=== PATIENT | male | born 1940 | race Two or more races ===

== ENCOUNTER 2019-09-19 09:13 | Outpatient (CLI) | payer OTHER, SELFPAY ==
[2019-09-19 09:52] LABS: Basophils Percent Auto 0.2 % (0.2-1.2); Eosinophils Absolute Auto 0.1 K/mm3 (0-0.3); Eosinophils Percent Auto 2.5 % (0-4.4); Hematocrit 41.5 % (42.0-52.0); Hemoglobin 13.1 g/dL (14.0-18.0); Immature Granulocyte Absolute 0.01 K/mm3 (0.00-0.031); Immature Granulocyte Percent A 0.2 % (0-0.5); Lymphocytes Absolute Auto 1.25 K/mm3 (0.9-3.2); Lymphocytes Percent Auto 25.9 % (18.3-44.2); Mean Corpuscular HGB Conc 31.6 g/dl (32-36); Mean Corpuscular Hemoglobin 26.9 pg (26-34); Mean Corpuscular Volume 85.2 fl (80-100); Mean Platelet Volume 11.3 fl (7.4-10.4); Monocytes Absolute Auto 0.5 K/mm3 (0.1-0.6); Monocytes Percent Auto 9.5 % (2.6-8.5); Neutrophils Percent Auto 61.7 % (45.5-73.1); Platelet Count Result 133 k/mm3 (150-375); Red Blood Count 4.87 M/mm3 (4.6-6.20); Red Cell Distribution Width 13.3 % (11.5-14.5); White Blood Count 4.8 K/mm3 (4.5-10.0)
[2019-09-19 10:05] LABS: Alanine Aminotransferase 21 U/L (4-50); Albumin Level 4.3 g/dL (3.5-5.1); Alkaline Phosphatase 48 U/L (38-126); Aspartate Amino Transferase 26 U/L (17-59); Bilirubin,Total 0.5 mg/dL (0.2-1.3); Blood Urea Nitrogen 24 mg/dL (9-20); Calcium 9.2 mg/dL (8.4-10.2); Carbon Dioxide 27 mmol/L (22-30); Chloride 106 mmol/L (98-107); Cholesterol 105 mg/dL (0-200); Estimated Glomerular Filt Rate 54; Glucose 149 mg/dL (75-110); HDL Direct 42 mg/dL; Potassium 4.6 mmol/L (3.4-5.0); Sodium 139 mmol/L (137-145); Triglycerides 122 mg/dL (<150)
[2019-09-19 10:07] LABS: Hemoglobin A1C 7.5 % (<5.7)
[2019-09-19 10:16] LABS: LDL Cholesterol Direct 36 mg/dL
[2019-09-19 10:21] LABS: Iron 85 ug/dL (49-181)
[2019-09-19 10:31] LABS: Percent Iron Saturation 23 % (20-50)
[2019-09-19 10:38] LABS: Free T4 Free Thyroxine 0.98 ng/mL (0.78-2.19)
[2019-09-19 10:56] LABS: Vitamin B12 > 1000.0 pg/mL (239-931); Vitamin D 25 Hydroxy 55.6 ng/mL
[2019-09-21 21:55] LABS: Albumin 3.9 g/dL (3.8-4.8); Alpha 1 Globulin 0.2 g/dL (0.2-0.3); Alpha 2 Globulin 0.8 g/dL (0.5-0.9); Beta 1 Globulin 0.4 g/dL (0.4-0.6); Gamma Globulin 0.8 g/dL (0.8-1.7); Protein, Total 6.4 g/dL (6.1-8.1)
[2019-09-22 16:55] LABS: Vitamin B6 23.8 ng/mL (2.1-21.7)
== END 2019-09-19 09:14 | disposition home or self-care (01) ==
PROVIDERS: PCP Psychiatry & Neurology Neurology; Visit Provider Psychiatry & Neurology Neurology
DX: E11.9 Type 2 diabetes mellitus without complications (principal); D64.9 Anemia, unspecified; E78.00 Pure hypercholesterolemia, unspecified; E03.9 Hypothyroidism, unspecified; E53.9 Vitamin B deficiency, unspecified; E55.9 Vitamin D deficiency, unspecified
CPT/HCPCS: 36415; 80053; 80061; 82306; 82607; 83036; 83540; 83550; 84155; 84165; 84207; 84439; 84443; 85025

== ENCOUNTER 2021-08-26 17:03 | Emergency (ER) | payer OTHER, SELFPAY ==
--- NOTE | ~2021-08-26 | CT_ITS ---
EXAMINATION: CT abdomen pelvis wo con DATE: 08/26/2021 19:05 INDICATION: Lower abdominal pain, lower back pain TECHNIQUE: Computed tomography (CT) of the abdomen and pelvis was performed without intravenous contr ast. Automated exposure control and iterative reconstruction technique were employed. The dose-length product was 193.61 mGy-cm. COMPARISON: None FINDINGS: Lower thorax: Severe coronary artery calcifications. Aortic valve calcification. Small hiatal hernia. Liver: Normal. Biliary/Gallbladder: Gallbladder is normal. No bile duct dilation. Spleen: Normal. No hydronephrosis. Pancreas: No mass or duct dilation. Adrenals:No mass. Kidneys: Moderate right and mild left perinephric stranding. Thickening of the lateral conal fascia o n the right. 6.7 and 4.4 cm simple right upper pole renal cysts. 4 mm nonobstructive calculus in the right renal pelvis. GI tract: No small or large bowel dilation. Normal appendix. Mesentery/Peritoneum: No ascites, mass, or free air. Retroperitoneum: No mass. Pelvis: Mild prostatomegaly, otherwise the pelvic organs are within normal limits. Bones/Soft Tissues: Small bilateral inguinal hernias. Small fat-containing umbilical hernia. Additional Findings: None. IMPRESSION: Right renal and collecting system changes that may be secondary to a recently passed right kidney sto ne. Alternatively, consider cystitis and ascending infection in the differential, if clinically consi stent. Reviewed, dictated and finalized at location K. IMPRESSION: Right renal and collecting system changes that may be secondary to a recently p assed right kidney stone. Alternatively, consider cystitis and ascending infect ion in the differential, if clinically consistent.
[2021-08-26 17:29] VITALS: BP 141/61; PULSE 63; RESP 16; TEMP 36.9; O2SAT 98
--- NOTE | 2021-08-26 17:51 | ECG_ITS ---
Measurements Intervals [place] Rate: 60 P: 37 UT: 206 QRS: -28 QRSD: 78 T: 12 QT: 374 QTc: 376 Interpretive Statements SINUS RHYTHM LOW QRS VOLTAGE IN PRECORDIAL LEADS [QRS DEFLECTION < 1.0 mV IN CHEST LEADS] MINIMAL VOLTAGE CRITERIA FOR LVH, CONSIDER NORMAL VARIANT [MEETS CRITERIA IN ONE OF: R(aVL), S(V1), R(V5), R(V5/V6)+S(V1)] POSSIBLE ANTERIOR MYOCARDIAL INFARCTION , PROBABLY OLD [30 ms Q WAVE IN V3/V4, OR R < 0.2 mV IN V4] INFERIOR MYOCARDIAL INFARCTION , PROBABLY OLD [40+ ms Q WAVE AND/OR ST/T ABNORMALITY IN II/aVF] ABNORMAL ECG NO PREVIOUS ECG AVAILABLE FOR COMPARISON Electronically Signed On 08-27-2021 18:01:36 CDT by Wilver Killian M.D.
[2021-08-26 18:14] LABS: Basophils Percent Auto 0.1 % (0.2-1.2); Eosinophils Percent Auto 0.3 % (0-4.4); Hematocrit 41.1 % (42.0-52.0); Hemoglobin 12.9 g/dL (14.0-18.0); Immature Granulocyte Absolute 0.02 K/mm3 (0.00-0.031); Immature Granulocyte Percent A 0.2 % (0-0.5); Immature Platelet Fraction Pct 6.5 % (0.9-11.2); Lymphocytes Percent Auto 12.3 % (18.3-44.2); Mean Corpuscular HGB Conc 31.4 g/dl (32-36); Mean Corpuscular Hemoglobin 27.4 pg (26-34); Mean Corpuscular Volume 87.3 fl (80-100); Mean Platelet Volume 11.4 fl (7.4-10.4); Neutrophils Absolute Auto 7.5 K/mm3 (1.3-6.7); Neutrophils Percent Auto 77.1 % (45.5-73.1); Platelet Count Result 154 k/mm3 (150-375); Red Blood Count 4.71 M/mm3 (4.6-6.20); Red Cell Distribution Width 13.4 % (11.5-14.5); White Blood Count 9.8 K/mm3 (4.5-10.0)
[2021-08-26 18:22] LABS: Alanine Aminotransferase 22 U/L (4-50); Albumin Level 4.5 g/dL (3.5-5.1); Alkaline Phosphatase 58 U/L (38-126); Anion Gap 8 mmol/L (8-16); Aspartate Amino Transferase 28 U/L (17-59); Bilirubin,Total 0.8 mg/dL (0.2-1.3); Blood Urea Nitrogen 35 mg/dL (9-20); Calcium 9.1 mg/dL (8.4-10.2); Carbon Dioxide 24 mmol/L (22-30); Chloride 104 mmol/L (98-107); Creatine Kinase 92 U/L (55-170); Estimated CRCL calculation 25 ml/min; Estimated Glomerular Filt Rate 32; Glucose 267 mg/dL (65-110); Lipase 263 U/L (23-300); Potassium 4.3 mmol/L (3.4-5.0); Sodium 136 mmol/L (137-145)
[2021-08-26] MEDS: ONDANSETRON INJ 4 MG/2 ML VIAL IV PUSH (18:24)
[2021-08-26] MEDS: SODIUM CHLORIDE 0.9% IV 1,000 ML 999 ML IV CONT (18:24)
[2021-08-26] MEDS: HYDROmorphone HCL INJ (*CRX) 1 MG/ML SYR 0.5 MG IV PUSH (18:24)
[2021-08-26 18:25] LABS: INR 1.1; Prothrombin Time 13.4 Seconds (11.1-14.7)
[2021-08-26 18:37] VITALS: BP 142/62; PULSE 64; RESP 13; O2SAT 99
[2021-08-26 18:38] LABS: Mucus Urine Rare /lpf; RBC Urine 0-2 /hpf (0-2); Squamous Epithelial Cell Urine Rare /hpf (Few); WBC Urine 0-3 /hpf
[2021-08-26 18:50] LABS: Appearance Urine Clear (Clear); Color Urine Yellow (Yellow)
[2021-08-26 18:51] LABS: Blood Urine Trace (Negative); Glucose Urine UA 1+ mg/dL (Negative); Ketones Urine Negative (Negative); Protein Urine 1+ mg/dL (Negative); Specific Grav Ur 1.025 (1.001-1.035)
[2021-08-26 18:52] LABS: Bilirubin Urine Negative (Negative); Nitrate Urine Negative (Negative)
[2021-08-26 18:53] LABS: Add Urine Microscopic? YES; Leukocyte Esterase Ur Negative LEU/UL (Negative); Urobilinogen Urine 0.2 mg/dL (<2.0)
--- NOTE | 2021-08-26 20:09 | ED.GENADULT ---
HPI - General Adult General Chief complaint: Abdominal Pain Stated complaint: back and abd pain more on right Time Seen by Provider: 08/26/21 17:39 Related Data Allergies Allergy/AdvReac Type Severity Reaction Status Date / Time Iodinated Contrast Media Allergy Swelling Verified 08/26/21 18:23 Course Vital Signs Vital signs: Vital Signs Temperature 36.9 C 08/26/21 17:29 Pulse Rate 63 08/26/21 17:29 Respiratory Rate 16 08/26/21 17:29 Blood Pressure 141/61 H 08/26/21 17:29 Pulse Oximetry 98 08/26/21 17:29 Temperature 36.9 C 08/26/21 17:29 Pulse Rate 64 08/26/21 18:37 Respiratory Rate 13 08/26/21 18:37 Blood Pressure 142/62 H 08/26/21 18:37 Pulse Oximetry 99 08/26/21 18:37 Medical Decision Making Vital Signs Vital Signs: Vital Signs Temperature 36.9 C 08/26/21 17:29 Pulse Rate 63 08/26/21 17:29 Respiratory Rate 16 08/26/21 17:29 Blood Pressure 141/61 H 08/26/21 17:29 Pulse Oximetry 98 08/26/21 17:29 Temperature 36.9 C 08/26/21 17:29 Pulse Rate 64 08/26/21 18:37 Respiratory Rate 13 08/26/21 18:37 Blood Pressure 142/62 H 08/26/21 18:37 Pulse Oximetry 99 08/26/21 18:37 Lab Data Result diagrams: 08/26/21 18:01 08/26/21 18:01 Labs: Lab Results 08/26/21 08/26/21 08/26/21 Range/Units 18:01 18:01 18:06 WBC 9.8 (4.5-10.0) K/mm3 RBC 4.71 (4.6-6.20) M/mm3 Hgb 12.9 L (14.0-18.0) g/dL Hct 41.1 L (42.0-52.0) % MCV 87.3 (80-100) fl MCH 27.4 (26-34) pg MCHC 31.4 L (32-36) g/dl RDW 13.4 (11.5-14.5) % Plt Count 154 (150-375) k/mm3 MPV 11.4 H (7.4-10.4) fl Immature Gran % (Auto) 0.2 (0-0.5) % Neut % (Auto) 77.1 H (45.5-73.1) % Lymph % (Auto) 12.3 L (18.3-44.2) % Miller % (Auto) 10.0 H (2.6-8.5) % Eos % (Auto) 0.3 (0-4.4) % Baso % (Auto) 0.1 L (0.2-1.2) % Lymph # (Auto) 1.20 (0.9-3.2) K/mm3 Miller # (Auto) 1.0 H (0.1-0.6) K/mm3 Eos # (Auto) 0.0 (0-0.3) K/mm3 Baso # (Auto) 0.0 (0.0-0.1) K/mm3 Abs Immat Gran (auto) 0.02 (0.00-0.031) K/mm3 Absolute Neuts (auto) 7.5 H (1.3-6.7) K/mm3 Absolute Nucleated RBC 0.0 (0.0-0.012) K/mm3 Nucleated RBC % 0.0 (0.0-0.2) % % Immature Plt Fraction 6.5 (0.9-11.2) % PT 13.4 (11.1-14.7) Seconds INR 1.1 APTT 31.0 (22.3-36.8) SECONDS Sodium 136 L (137-145) mmol/L Potassium 4.3 (3.4-5.0) mmol/L Chloride 104 (98-107) mmol/L Carbon Dioxide 24 (22-30) mmol/L Anion Gap 8 (8-16) mmol/L BUN 35 H D (9-20) mg/dL Creatinine 2.00 H (0.7-1.3) mg/dL Estim Creat Clear Calc 25 ml/min Estimated GFR 32 L (59 - ) Glucose 267 H (65-110) mg/dL Calcium 9.1 (8.4-10.2) mg/dL Total Bilirubin 0.8 (0.2-1.3) mg/dL AST 28 (17-59) U/L ALT 22 (4-50) U/L Alkaline Phosphatase 58 (38-126) U/L Total Creatine Kinase 92 (55-170) U/L Total Protein 7.0 (6.3-8.2) g/dL Albumin 4.5 (3.5-5.1) g/dL Lipase 263 (23-300) U/L Urine Color (Yellow) Urine Appearance (Clear) Urine pH (5.0-9.0) Ur Specific Lutz (1.001-1.035) Urine Protein (Negative) mg/dL Urine Glucose (UA) (Negative) mg/dL Urine Ketones (Negative) mg/dL Ur Blood (Man) (Negative) Urine Nitrate (Negative) Urine Bilirubin (Negative) Urine Urobilinogen (<2.0) mg/dL Leukocyte Esterase Rfl (Negative) MACKENZIE/UL Urine RBC (0-2) /hpf Urine WBC /hpf Ur Squamous Epith Cells (Few) /hpf Urine Mucus /lpf 08/26/21 Range/Units 18:10 WBC (4.5-10.0) K/mm3 RBC (4.6-6.20) M/mm3 Hgb (14.0-18.0) g/dL Hct (42.0-52.0) % MCV (80-100) fl MCH (26-34) pg MCHC (32-36) g/dl RDW (11.5-14.5) % Plt Count (150-375) k/mm3 MPV (7.4-10.4) fl Immature Gran % (Auto) (0-0.5) % Neut % (Auto) (45.5-73.1) % Lymph % (Auto) (18.3-44.2) % Miller % (Auto)
[2021-08-26 20:34] VITALS: BP 107/76; PULSE 61; RESP 16; O2SAT 97
== END 2021-08-26 21:05 | disposition home or self-care (01) ==
PROVIDERS: Emergency Provider Emergency Medicine
DX: M54.50 Low back pain, unspecified (principal); E86.0 Dehydration; I25.10 Atherosclerotic heart disease of native coronary artery without angina pectoris; E78.5 Hyperlipidemia, unspecified; E11.9 Type 2 diabetes mellitus without complications; Z79.84 Long term (current) use of oral hypoglycemic drugs; R10.31 Right lower quadrant pain
CPT/HCPCS: 36415; 74176; 80053; 81001; 82550; 83690; 85025; 85055; 85610; 85730; 93005; 96361; 96374; 96375; 99284; J1170; J2405; J7030

== ENCOUNTER 2021-09-02 11:27 | Outpatient (CLI) | payer OTHER, SELFPAY ==
[2021-09-02 12:03] LABS: Estimated Glomerular Filt Rate 53
== END 2021-09-02 11:28 | disposition home or self-care (01) ==
PROVIDERS: Visit Provider Psychiatry & Neurology Neurology
DX: E78.5 Hyperlipidemia, unspecified (principal); E11.9 Type 2 diabetes mellitus without complications
CPT/HCPCS: 36415; 82565

== ENCOUNTER 2022-07-14 12:07 | Outpatient (CLI) | payer MEDICARE, BC, SELFPAY ==
[2022-07-14 13:14] LABS: Anion Gap 4 mmol/L (8-16); Blood Urea Nitrogen 25 mg/dL (9-20); Calcium 9.3 mg/dL (8.4-10.2); Carbon Dioxide 29 mmol/L (22-30); Chloride 104 mmol/L (98-107); Estimated Glomerular Filt Rate 53; Glucose 125 mg/dL (65-110); HDL Direct 48 mg/dL; Potassium 4.6 mmol/L (3.4-5.0); Sodium 137 mmol/L (137-145)
[2022-07-14 13:25] LABS: LDL Cholesterol Direct 33 mg/dL
[2022-07-14 13:44] LABS: Microalbumin Urine Random 83.9 mg/L (0-16.7)
[2022-07-14 15:03] LABS: Creatinine Urine 462.4 mg/dL; MALB Creatinine Ratio 18.1 mg/g (0-30)
== END 2022-07-14 12:08 | disposition home or self-care (01) ==
LOC: ANHWCLAB 12:12
PROVIDERS: Visit Provider Internal Medicine Endocrinology, Diabetes & Metabolism
DX: E11.65 Type 2 diabetes mellitus with hyperglycemia (principal); E78.5 Hyperlipidemia, unspecified
CPT/HCPCS: 36415; 80048; 82043; 82607; 83718; 83721; 84443

== ENCOUNTER 2023-02-12 10:06 | Outpatient (CLI) | payer MEDICARE, SELFPAY ==
[2023-02-12 11:13] LABS: Anion Gap 5 mmol/L (8-16); Blood Urea Nitrogen 34 mg/dL (9-20); Calcium 9.1 mg/dL (8.4-10.2); Carbon Dioxide 29 mmol/L (22-30); Chloride 104 mmol/L (98-107); Cholesterol 111 mg/dL (0-200); Estimated Glomerular Filt Rate 42; Glucose 161 mg/dL (65-110); HDL Direct 41 mg/dL; Potassium 4.8 mmol/L (3.4-5.0); Sodium 138 mmol/L (137-145); Triglycerides 134 mg/dL (<150)
[2023-02-12 11:26] LABS: LDL Cholesterol Direct 44 mg/dL
[2023-02-12 11:53] LABS: Creatinine Urine 203.6 mg/dL
[2023-02-12 11:57] LABS: MALB Creatinine Ratio 45.5 mg/g (0-30); Microalbumin Urine Random 92.6 mg/L (0-16.7)
== END 2023-02-12 10:07 | disposition home or self-care (01) ==
LOC: ANHLAB 10:11
PROVIDERS: Visit Provider Internal Medicine Endocrinology, Diabetes & Metabolism
DX: E11.65 Type 2 diabetes mellitus with hyperglycemia (principal); E78.5 Hyperlipidemia, unspecified
CPT/HCPCS: 36415; 80048; 80061; 82043; 82607; 84443

== ENCOUNTER 2023-06-02 11:08 | Outpatient (CLI) | payer MEDICARE, SELFPAY ==
[2023-06-04 14:29] LABS: Glutamic acid decarboxylase AA <5 IU/mL (<5)
[2023-06-04 21:03] LABS: C-Peptide 2.91 ng/mL (0.80-3.85)
== END 2023-06-02 11:09 | disposition home or self-care (01) ==
LOC: ANHLAB 11:09
PROVIDERS: Visit Provider Internal Medicine
DX: E11.65 Type 2 diabetes mellitus with hyperglycemia (principal)
CPT/HCPCS: 36415; 84681; 86341

== ENCOUNTER 2024-08-25 07:23 | Outpatient (CLI) | payer MEDICARE, SELFPAY ==
--- OUTSIDE RECORDS SUMMARY | 2024-08-24 13:18 | XMS_ITS ---
Author Organization [facility] tae Address [address] [place] [address] Care Team Providers Care Eco Industrial Development Consultant Name Role Phone Chapincito Qureshi Primary Care Provider Chapincito Qureshi MD Unavailable Unavailable Encounters Encounter Location Date Provider Diagnosis [facility] [address] [facility] [address] [place] [address] 07/25/2024 Chapincito Qureshi Plan Of Treatment Next Appt Details Provider Name:Chapincito Qureshi, 10/14/2024 09:15:00 AM, [address] [address], [place], [address], Progress Notes * Huy KHANDOB:1940 ( 83 yo M)Acc No.[id number]:07/25/2024 Patient: Huy DUMONT :1940 A ge:83 Y S ex:Male Address:[address] [place] [address], [address] * true * Date: Generated for Printi ng/Faxing/eTransmitting on: 0 08/24/2024 01:18 PM CDT
--- OUTSIDE RECORDS SUMMARY | 2024-08-24 13:18 | XMS_ITS | CONTINUITY OF CARE DOCUMENT ---
Author Name toño lundberg Address Unknown Organization [facility] Address [address] [place] [address] Phone [phone] Care Team Providers Care Telescope Operator Name Role Phone JOE SERRANO, LULU Unavailable INSURANCE PROVIDERS Payer name Policy type / Coverage type [place] red republican ID [id number] PPO Other [id number]
--- OUTSIDE RECORDS SUMMARY | 2024-08-24 13:18 | XMS_ITS | Patient Health Record ---
Author Organization [facility] tae Address [address] [address] [place] [address] Care Team Providers Care Talent Analyst Name Role Phone Chapincito Qureshi Primary Care Provider Chapincito Qureshi MD Unavailable Unavailable Allergies Allergen (clinical drug ingredient) Drug/Non Drug Allergy documented on EMR Reaction Allergy Type Onset Date Status Iodine Unknown Drug Allergy 03/26/2015 Inacti ve Results Component Value Reference Range Notes CBC w auto diff (Not yet rev iewed by provider) Interpretation: Performing Lab:[facility] , [address] [facility] [facility] [address] Notes/Report: WBC 4.4 3.8-9.9 K/cumm Hgb 13.8 13.0-17.5 g/dL Hct 45.0 38.9-50.3 % Platelet Ct 113 150-400 K/cumm MPV 11.4 9.1-12.3 fL RBC 5.07 4.30-5.80 M/cumm MCV 88.8 81.3-96.4 fL MCH 27.2 27.1-33.3 pg MCHC 30.7 32.3-35.7 g/dL RDW CV 14.3 11.1-14.9 % RDW SD 45.5 35.7-48.1 fL NRBC Abs Auto 0.00 0.00-0.01 K/cumm Comprehensive metabolic pane l (CMP) (Not yet reviewed by provider) Interpretation: Performing Lab:[facility] , [address] [facility]. [place] [address] Notes/Report: Sodium 143 135-145 mmol/L Plasma Potassium 4.9 3.3-4.9 mmol/L Chloride 108 97-110 mmol/L Total CO2 24 22-32 mmol/L Anion Gap 11 2-15 mmol/L BUN 29 6-25 mg/dL Creatinine 1.46 0.80-1.30 mg/dL Glucose 126 70-199 mg/dL Fasting glucose between 100 mg/dl to 125 mg/dl is diagnostic of prediabetes. In a patient with classic symptoms of hyperglycemia or hyperglycemic crisis, a random glucose >/= 200 mg/dl is diagnostic for diabetes. In the absence of unequivocal hyperglycemia, results should be confirmed by repeat testing. The classification and Diagnosis of Diabetes Diabetes Care 202; 46: S19-S40. Current interpretive data was last revised 2022. Interpretive Data Fasting glucose >/= 126 mg/dl is diagnostic for diabetes. Fasting is defined as no caloric intake for at least 8 hours. Total Calcium 9.2 8.5-10.3 mg/dL Total Bilirubin 0.5 0.1-1.2 mg/dL Plasma Total Protein 7.0 6.5-8.5 g/dL Albumin 4.2 3.5-5.0 g/dL Alkaline Phosphatase 48 40-130 Units/L ALT 30 7-55 Units/L AST 28 10-50 Units/L Hemoglobin A1C (Not yet revi ewed by provider) Interpretation: Performing Lab:[facility] , [address] [place] [address]. [facility] [address] Notes/Report: Hemoglobin A1C 6.7 4.0-5.6 % Est Average Glucose 146 The ADA recommends reporting an estimated Average Glucose (eAG) with all Hemoglobin A1c results using the equation derived from a study of 507 normal and diabetic adults. Minority populations were underrepresented and children were not included. (Diabetes Care 31:1003-8028, 2008). The eAG is not equivalent to a fasting glucose. Lipid Panel (Not yet reviewe d by provider) Interpretation: Performing Lab:[facility] , [address] [facility]. [facility] [address] Notes/Report: Cholesterol 121 30-199 mg/dL Interpretive Data Ages < or = 19 years Acceptable: <170 mg/dL Borderline high: 170-199 mg/dL High: >or= 200 mg/dL Ages > or = 20 years Desirable: <200 mg/dL Borderline high: 200-239 mg/dL High: >or= 240 mg/dL Literature References: 1. Expert Panel on Integrated Guidelines for Cardiovascular Health and Risk Reduction in Children and Adolescents. Pediatrics 2011;128:S213 2. NCEP Expert Panel. Circulation 2004;110:227 Current Interpretive Data was last revised on 2018. Triglycerides 89 <=149 mg/dL Interpretive Data Ages < or = 9 years Acceptable: <75 mg/dL Borderline high: 75-99 mg/dL High: >or= 100 mg/dL Ages 10 to 20 years Acceptable: <90 mg/dL Borderline high: 90-129 mg/dL High: >or= 130 mg/dL Ages > or = 20 years Desirable: <150 mg/dL Borderline high: 150-199 mg/dL High: 200-499 mg/dL Very high: >or= 499 mg/dL Literature References: 1. Expert Panel on Integrated Guidelines for Cardiovascular Health and Risk Reduction in Children and Adolescents. Pediatrics 2011;128:S213 2. NCEP Expert Panel. Circulation 2003;110:227 Current Interpretive Data was last revised on 2018. HDL Cholesterol 49 >=40 mg/dL Interpretive Data Ages < or = 19 years Acceptable: >45 mg/dL Borderline low: 40-45 mg/dL Low: <40 mg/dL Ages > or = 20 years Desirable: >or= 60 mg/dL Low: <40 mg/dL Literature References: 1. Expert Panel on Integrated Guidelines for Cardiovascular Health and Risk Reduction in Children and Adolescents. Pediatrics 2010;128:S213 2. NCEP Expert Panel. Circulation 2003;110:227 Current Interpretive Data was last revised on 2018. LDL Cholesterol, calculated 55 <=129 mg/dL Interpretive Data Ages < or = 19 years Acceptable: <110 mg/dL Borderline high: 110-129 mg/dL High: >or= 130 mg/dL Ages > or = 20 years Optimal: <100 mg/dL Near optimal: 100-129 mg/dL Borderline high: 130-159 mg/dL High: >160 mg/dL Calculated using the Cao LDL-C estimating equation. This equation was implemented on 2024. Prior to this date LDL-C was estimated using the Friedewald equation. Literature References: 1. Expert Panel on Integrated Guidelines for Cardiovascular Health and Risk Reduction in Children and Adolescents. Pediatrics 2010;128:S213 2. NCEP Expert Panel. Circulation 2004;110:227 3. Nash M et al. GIOVANNA Cardiol. 2020 September 15;5(5):540-548. doi: [email or web address] Current Interpretive Data was last revised on 2024. Non-HDL Cholesterol 72 Interpretive Data Ages < or = 19 years Acceptable: <120 mg/dL Borderline high: 120-144 mg/dL High: >145 mg/dL Ages > or = 20 years When triglycerides are >200 mg/dL, Non-HDL cholesterol is a secondary target of therapy with treatment goals that are 30 mg/dL greater than the LDL cholesterol target. Literature References: 1. Expert Panel on Integrated Guidelines for Cardiovascular Health and Risk Reduction in Children and Adolescents. Pediatrics 2011;128:S213 2. NCEP Expert Panel. Circulation 2004;110:227 Current Interpretive Data was last revised on 2018. Cholesterol/HDL ratio 2 PSA, Screen (Not yet reviewe d by provider) Interpretation: Performing Lab:[facility] , [facility] [facility]. [place] [address] Notes/Report: PSA-Total 3.69 <=6.20 ng/mL Interpretive Data AGE SEX REFERENCE INTERVAL 0 minutes-150 years Female None 0 minutes-49 years Male None 50-59 years Male 0-3.90 60-69 years Male 0-5.40 70-79 years Male 0-6.20 80-150 years Male 0-6.20 The Ha PSA Total assay procedure was used. Results from different manufacturers or methods may not be comparable. Serial testing should be performed using the same method. Current interpretive data last revised 21. T3 Free (Not yet reviewed by provider) Interpretation: Performing Lab:[facility] , [address] [facility]. [place] [address] Notes/Report: Free T3 2.9 2.0-4.4 pg/mL TSH Reflex FT4 (Not yet revi ewed by provider) Interpretation: Performing Lab:[facility] , [address] [facility] [place] [address] Notes/Report: TSH (Morgan) 1.50 0.30-4.20 mcIUnit/mL UA, reflex Micro to Culture (Not yet reviewed by provider) Interpretation: Performing Lab:[facility] , [address] [place] [address]. [place] [address] Notes/Report: Color, Ur Yellow Yellow Clarity, Ur Clear Clear Spec Grav, Ur 1.027 1.003-1.03 pH, Ur 6.0 Interpretive Data ?Urine pH is affected by diet, medications, systemic acid-base disturbances, and renal tubular function. pH may affect urinary stone formation. For example, urine pH below 6.0 may help reduce the tendency for calcium phosphate stones and pH greater than 6.0 may reduce the tendency for uric acid stone formation. Source: [facility] Current Interpretive Data was last revised on 2017 Protein, Ur Ql Trace Negative Glucose, Ur Ql 4+ Negative Ketones, Ur Negative Negative Bilirubin, Ur Negative Negative Blood, Ur Negative Negative Urobilinogen, Ur <2.0 <2.0 mg/dL Nitrite, Ur Negative Negative Leukocyte Esterase, Ur Negative Negative UA reflex comment See Below Reflex con ditions for microscopic UA and culture not met. CBC w auto diff Reviewed date:07/27/2024 05:51:27 PM Interpretation: Performing Lab:[facility] , [address] [place] [address]. [facility] [address] Notes/Report: WBC 5.1 3.8-9.9 K/cumm Hgb 13.9 13.0-17.5 g/dL Hct 44.7 38.9-50.3 % Platelet Ct 122 150-400 K/cumm MPV 11.6 9.1-12.3 fL RBC 5.16 4.30-5.80 M/cumm MCV 86.6 81.3-96.4 fL MCH 26.9 27.1-33.3 pg MCHC 31.1 32.3-35.7 g/dL RDW CV 14.0 11.1-14.9 % RDW SD 44.3 35.7-48.1 fL NRBC Abs Auto 0.00 0.00-0.01 K/cumm Comprehensive metabolic pane l (CMP) Reviewed date:07/27/2024 05:52:56 PM Interpretation: Performing Lab:[facility] , [address] [place] [address]. [facility] [address] Notes/Report: Sodium 143 135-145 mmol/L Plasma Potassium 4.7 3.3-4.9 mmol/L Chloride 106 97-110 mmol/L Total CO2 29 22-32 mmol/L Anion Gap 8 2-15 mmol/L BUN 24 6-25 mg/dL Creatinine 1.56 0.80-1.30 mg/dL Glucose 121 70-199 mg/dL Interpretive Data Fasting glucose >/= 126 mg/dl is diagnostic for diabetes. Fasting is defined as no caloric intake for at least 8 hours. Fasting glucose between 100 mg/dl to 125 mg/dl is diagnostic of prediabetes. In a patient with classic symptoms of hyperglycemia or hyperglycemic crisis, a random glucose >/= 200 mg/dl is diagnostic for diabetes. In the absence of unequivocal hyperglycemia, results should be confirmed by repeat testing. The classification and Diagnosis of Diabetes Diabetes Care 202; 46: S19-S40. Current interpretive data was last revised 2022. Total Calcium 9.6 8.5-10.3 mg/dL Total Bilirubin 0.4 0.1-1.2 mg/dL Plasma Total Protein 7.0 6.5-8.5 g/dL Albumin 4.2 3.5-5.0 g/dL Alkaline Phosphatase 53 40-130 Units/L ALT 32 7-55 Units/L AST 28 10-50 Units/L Differential Automated Reviewed date:07/27/2024 05:51:33 PM Interpretation: Performing Lab:[facility] , [address] [place] [address]. [facility] [address] Notes/Report: Neut Abs 2.5 1.5-6.5 K/cumm ImmGran Abs 0.0 0.0-0.1 K/cumm Lymphocyte Abs 1.6 0.8-3.3 K/cumm [place] Abs 0.6 0.2-0.8 K/cumm Eos Abs 0.5 0.0-0.5 K/cumm Baso Abs 0.0 0.0-0.1 K/cumm Neut Pct 48.0 Interpretive Data Percent cell count reference ranges are not reported, since discordance with absolute values may lead to misinterpretation of CBC data. Current Interpretive Data was last revised on 2017. ImmGran Pct 0.2 Interpretive Data Percent cell count reference ranges are not reported, since discordance with absolute values may lead to misinterpretation of CBC data. Current Interpretive Data was last revised on 2017. Lymph Pct 30.4 Interpretive Data Percent cell count reference ranges are not reported, since discordance with absolute values may lead to misinterpretation of CBC data. Current Interpretive Data was last revised on 2017. [place] Pct 10.7 Interpretive Data Percent cell count reference ranges are not reported, since discordance with absolute values may lead to misinterpretation of CBC data. Current Interpretive Data was last revised on 2017. Eos Pct 10.1 Interpretive Data Percent cell count reference ranges are not reported, since discordance with absolute values may lead to misinterpretation of CBC data. Current Interpretive Data was last revised on 2017. Baso Pct 0.6 Interpretive Data Percent cell count reference ranges are not reported, since discordance with absolute values may lead to misinterpretation of CBC data. Current Interpretive Data was last revised on 2017. Hemoglobin A1C Reviewed date:07/27/2024 05:52:28 PM Interpretation: Performing Lab:[facility] , [address] [facility] [place] [address] Notes/Report: Hemoglobin A1C 6.7 4.0-5.6 % Est Average Glucose 146 The ADA recommends reporting an estimated Average Glucose (eAG) with all Hemoglobin A1c results using the equation derived from a study of 507 normal and diabetic adults. Minority populations were underrepresented and children were not included. (Diabetes Care 31:6380-4080, 2008). The eAG is not equivalent to a fasting glucose. Lipid Panel Reviewed date:07/27/2024 05:53:02 PM Interpretation: Performing Lab:[facility] , [address] [facility]. [place] [address] Notes/Report: Cholesterol 104 30-199 mg/dL Interpretive Data Ages < or = 19 years Acceptable: <170 mg/dL Borderline high: 170-199 mg/dL High: >or= 200 mg/dL Ages > or = 20 years Desirable: <200 mg/dL Borderline high: 200-239 mg/dL High: >or= 240 mg/dL Literature References: 1. Expert Panel on Integrated Guidelines for Cardiovascular Health and Risk Reduction in Children and Adolescents. Pediatrics 2011;128:S213 2. NCEP Expert Panel. Circulation 2004;110:227 Current Interpretive Data was last revised on 2018. Triglycerides 92 <=149 mg/dL Interpretive Data Ages < or = 9 years Acceptable: <75 mg/dL Borderline high: 75-99 mg/dL High: >or= 100 mg/dL Ages 10 to 20 years Acceptable: <90 mg/dL Borderline high: 90-129 mg/dL High: >or= 130 mg/dL Ages > or = 20 years Desirable: <150 mg/dL Borderline high: 150-199 mg/dL High: 200-499 mg/dL Very high: >or= 499 mg/dL Literature References: 1. Expert Panel on Integrated Guidelines for Cardiovascular Health and Risk Reduction in Children and Adolescents. Pediatrics 2011;128:S213 2. NCEP Expert Panel. Circulation 2004;110:227 Current Interpretive Data was last revised on 2018. HDL Cholesterol 46 >=40 mg/dL Interpretive Data Ages < or = 19 years Acceptable: >45 mg/dL Borderline low: 40-45 mg/dL Low: <40 mg/dL Ages > or = 20 years Desirable: >or= 60 mg/dL Low: <40 mg/dL Literature References: 1. Expert Panel on Integrated Guidelines for Cardiovascular Health and Risk Reduction in Children and Adolescents. Pediatrics 2011;128:S213 2. NCEP Expert Panel. Circulation 2004;110:227 Current Interpretive Data was last revised on 2018. LDL Cholesterol, calculated 40 <=129 mg/dL Interpretive Data Ages < or = 19 years Acceptable: <110 mg/dL Borderline high: 110-129 mg/dL High: >or= 130 mg/dL Ages > or = 20 years Optimal: <100 mg/dL Near optimal: 100-129 mg/dL Borderline high: 130-159 mg/dL High: >160 mg/dL Literature References: 1. Expert Panel on Integrated Guidelines for Cardiovascular Health and Risk Reduction in Children and Adolescents. Pediatrics 2011;128:S213 2. NCEP Expert Panel. Circulation 2004;110:227 Current Interpretive Data was last revised on 2018. Non-HDL Cholesterol 58 Interpretive Data Ages < or = 19 years Acceptable: <120 mg/dL Borderline high: 120-144 mg/dL High: >145 mg/dL Ages > or = 20 years When triglycerides are >200 mg/dL, Non-HDL cholesterol is a secondary target of therapy with treatment goals that are 30 mg/dL greater than the LDL cholesterol target. Literature References: 1. Expert Panel on Integrated Guidelines for Cardiovascular Health and Risk Reduction in Children and Adolescents. Pediatrics 2011;128:S213 2. NCEP Expert Panel. Circulation 2004;110:227 Current Interpretive Data was last revised on 2018. Cholesterol/HDL ratio 2 T3 Free Reviewed date:07/27/2024 05:52:48 PM Interpretation: Performing Lab:[facility] , [address] [place] [address]. [facility] [address] Notes/Report: Free T3 3.1 2.0-4.4 pg/mL T4 Free Reviewed date:07/27/2024 05:52:34 PM Interpretation: Performing Lab:[facility] , [address] [place] [address]. [facility] [address] Notes/Report: Free T4 (Free Thyroxine) 1.30 0.90-1.70 ng/dL TSH Reviewed date:07/27/2024 05:52:41 PM Interpretation: Performing Lab:[facility] , [address] [place] [address]. [facility] [address] Notes/Report: TSH 1.58 0.30-4.20 mcIUnit/mL Urine Albumin / Creatinine R andom Reviewed date:07/27/2024 05:51:50 PM Interpretation: Performing Lab:[facility] , [address] [place] [address]. [facility] [address] Notes/Report: Random Urine Microalbumin 119.6 Interpretive Data No reference range established. Current interpretive data was last revised 2018. Random Urine Creatinine 133.8 Interpretive Data No reference range established. Current interpretive data was last revised 2018. Microalbumin_Creatinine Ratio 89 1-29 mg/g Urinalysis reflex microscopi c exam Reviewed date:07/27/2024 05:51:16 PM Interpretation: Performing Lab:[facility] , [address] [place] [address]. [facility] [address] Notes/Report: Color, Ur Yellow Yellow Clarity, Ur Clear Clear Spec Grav, Ur 1.019 1.003-1.030 pH, Ur 6.0 Interpretive Data ?Urine pH is affected by diet, medications, systemic acid-base disturbances, and renal tubular function. pH may affect urinary stone formation. For example, urine pH below 6.0 may help reduce the tendency for calcium phosphate stones and pH greater than 6.0 may reduce the tendency for uric acid stone formation. Source: [employer] Current Interpretive Data was last revised on 2017 Protein, Ur Ql 1+ Negative Glucose, Ur Ql Negative Negative Ketones, Ur Negative Negative Bilirubin, Ur Negative Negative Blood, Ur Trace Negative Urobilinogen, Ur <2.0 <2.0 mg/dL Nitrite, Ur Negative Negative Leukocyte Esterase, Ur Negative Negative UA reflex comment See Below Reflex to microscopic UA will be performed. UA Micro (All Sites) Reviewed date:07/27/2024 05:51:42 PM Interpretation: Performing Lab:[facility] , [address] [facility]. [place] [address] Notes/Report: WBC, Ur 0-5 0-5 /HPF RBC, Ur 3-5 0-2 /HPF Epithl Squam, Ur 1-5 0-5 /HPF Mucous Ur Present eGFR Reviewed date:07/27/2024 05:53:09 PM Interpretation: Performing Lab:[facility] , [address] [facility]. [place] [address] Notes/Report: eGFR 44 >=60 mL/min/1.73 m2 Interpretive Data Reference Interval Normal >/= 90 mL/min/1.73m2 Mildly decreased* 60 - 89 mL/min/1.73m2 Mildly to moderately decreased 45 - 59 mL/min/1.73m2 Moderately to severely decreased 30 - 44 mL/min/1.73m2 Severely decreased 15 - 29 mL/min/1.73m2 Kidney Failure < 15 mL/min/1.73m2 *Relative to young adult level Estimated glomerular filtration rate is determined by the 2020 CKD-EPI equation recommended by the National Kidney Foundation (A Unifying Approach to GFR Estimation: Recommendations of the NKF-ASK Task Force on Reassessing the Inclusion of Race in Diagnosing Kidney Disease, JASN 2020). The CKD-EPI equation should not be used for patients with unstable renal function and has not been validated in children and those over 70. Current interpretive data was last reviewed 2021. Differential Automated (Not yet reviewed by provider) Interpretation: Performing Lab:[facility] , [address] [facility]. [place] [address] Notes/Report: Neut Abs 2.4 1.5-6.5 K/cumm ImmGran Abs 0.0 0.0-0.1 K/cumm Lymphocyte Abs 1.3 0.8-3.3 K/cumm [place] Abs 0.4 0.2-0.8 K/cumm Eos Abs 0.2 0.0-0.5 K/cumm Baso Abs 0.0 0.0-0.1 K/cumm Neut Pct 55.3 Interpretive Data Percent cell count reference ranges are not reported, since discordance with absolute values may lead to misinterpretation of CBC data. Current Interpretive Data was last revised on 2017. ImmGran Pct 0.2 Interpretive Data Percent cell count reference ranges are not reported, since discordance with absolute values may lead to misinterpretation of CBC data. Current Interpretive Data was last revised on 2017. Lymph Pct 30.3 Interpretive Data Percent cell count reference ranges are not reported, since discordance with absolute values may lead to misinterpretation of CBC data. Current Interpretive Data was last revised on 2017. [place] Pct 10.1 Interpretive Data Percent cell count reference ranges are not reported, since discordance with absolute values may lead to misinterpretation of CBC data. Current Interpretive Data was last revised on 2017. Eos Pct 3.9 Interpretive Data Percent cell count reference ranges are not reported, since discordance with absolute values may lead to misinterpretation of CBC data. Current Interpretive Data was last revised on 2017. Baso Pct 0.2 Interpretive Data Percent cell count reference ranges are not reported, since discordance with absolute values may lead to misinterpretation of CBC data. Current Interpretive Data was last revised on 2017. eGFR (Not yet reviewed by nancy reddy) Interpretation: Performing Lab:[facility] , [address] [facility] [place] [address] Notes/Report: eGFR 48 >=60 mL/min/1.73 m2 Interpretive Data Reference Interval Normal >/= 90 mL/min/1.73m2 Mildly decreased* 60 - 89 mL/min/1.73m2 Mildly to moderately decreased 45 - 59 mL/min/1.73m2 Moderately to severely decreased 30 - 44 mL/min/1.73m2 Severely decreased 15 - 29 mL/min/1.73m2 Kidney Failure < 15 mL/min/1.73m2 *Relative to young adult level Estimated glomerular filtration rate is determined by the 2020 CKD-EPI equation recommended by the National Kidney Foundation (A Unifying Approach to GFR Estimation: Recommendations of the NKF-ASK Task Force on Reassessing the Inclusion of Race in Diagnosing Kidney Disease, JASN 2020). The CKD-EPI equation should not be used for patients with unstable renal function and has not been validated in children and those over 70. Current interpretive data was last reviewed 2021. Vit D 25OH (Not yet reviewed by provider) Interpretation: Performing Lab:[facility] , [address] [place] [address]. [facility] [address] Notes/Report: 25 Hydroxy Vitamin D 28 30-80 ng/mL Reason For Referral No Information Medications Medication SIG (Take, Route, Frequency, Duration) Notes Start Date End Date Status Donepezil HCl 5 MG 1 tablet in the morn ing Orally Once a day for 30 days 07/15/2024 Active Brilinta 60 MG 1 tablet Orally Twic e a day for 90 days Active Fosinopril Sodium 40 MG 1 tablet Orally Once a day for 30 day(s) Active Albuterol Sulfate HFA 108 (90 Base) MCG/ACT 1 puff as needed Inhalation every 6 hours for 30 days 12/17/2023 Not-Taking Donepezil HCl 5 MG 1 tablet at bedtime Orally Once a day for 30 days 06/18/2023 Not-Taking Rosuvastatin Calcium 40 MG 1 tablet Oral Once a day for 90 Days Active Tradjenta 5 MG TAKE 1 TABLET BY NICK TH EVERY MORNING Oral for 90 Days Active Tresiba FlexTouch 100 UNIT/ML 15 units Subcutaneous once daily at 8 pm for 90 days Not-Taking LORazepam 0.5 MG 1 tablet at bedtime as needed Orally twice a day for 30 days As needed 05/02/2023 Not-Taking Jardiance 25 MG 1 tablet Orally Once a day for 30 day(s) Active Nirmatrelvir&Ritonavir 300/100 20 x 150 MG & 10 x 100MG as directed Orally twice a day for 5 days 04/07/2023 Not-Taking ALPRAZolam 0.25 MG 1 tablet Orally Twice a day for 30 days As needed 04/30/2023 Not-Taking Citalopram Hydrobromide 10 MG 1 tablet Orally Once a day for 90 days Active Carvedilol 6.25 MG TAKE 1 TABLET TWICE A DAY WITH FOOD Oral for 90 days 04/26/2019 Active Immunizations Vaccine Route Administration Date Status Comme nts COVID- Vaccine mRNA Unknown 03/05/2023 Administered COVID- Vaccine mRNA Unknown 01/21/2024 Administered Influenza < 65 - [facility] Unknown 03/05/2023 Administered Influenza high dose > 65 [facility] IM Intramuscular 03/11/2019 Administered Influenza, injectable, MDCK, preservative free Unknown 02/03/2024 Administered Pfizer-[employer]iontech Covid-19 Vaccine 1st dose Unknown 05/08/2020 Administered Pfizer-[employer]ion[employer] Covid-19 Vaccine 1st dose Unknown 05/29/2020 Administered Pfizer-[employer]iontech Covid-19 Vaccine 1st dose Unknown 02/22/2021 Administered Pneumococcal conjugate PCV 13 IM Intramuscular 03/26/2015 Administered Pneumococcal conjugate PCV 20 Unknown 02/03/2024 Administered Shingrix Unknown 04/03/2023 Administered Shingrix Unknown 06/10/2023 Administered Social History Tobacco Use: Social History Observation Description Date Details (start date - stop date) Never Smoker NA - NA Tobacco Control (Standard) Question Answer Notes Tobacco use: Nonsmoker Problems Problem Type SNOMED Code ICD Code Onset Dates Problem Status W/U Status Risk Notes Problem 59801212 Type 2 diabetes mellitus with other circulatory complications (E11.59) Active confirmed Problem 640127639 Mixed hyperlipidemia (E78.2) Active confirmed 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 Problem 66066207 Essential hypertension (I10) Active confirmed Problem 42328542 Vitamin D deficiency (E55.9) Active confirmed Problem 298367914 CAD, 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 confirmed Problem 432467519 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 Vital Signs Heart Rate 60 /min 07/15/2024 Temperature 98.0 degrees Fahrenheit 07/15/2024 Blood pressure diastolic 72 mm Hg 07/15/2024 Oximetry 97 % 07/15/2024 Height-cm 170.18 cm 07/15/2024 Weight-kg 66.35 kg 07/15/2024 Height 67 in 07/15/2024 Blood pressure systolic 122 mm Hg 07/15/2024 Weight 146.3 lbs 07/15/2024 BMI 22.91 kg/m2 07/15/2024 Encounters Encounter Location Date Provider Diagnosis [facility] [address] [place] [address] 11/26/2023 Chapincito Qureshi CAD, multiple vessel I25.10 ; Primary hypertension I10 ; Mixed hyperlipidemia E78.2 and Type 2 diabetes mellitus with diabetic peripheral angiopathy and gangrene, without long-term current use of insulin E11.52 [facility] [address] [address] [place] [address] 07/15/2024 Chapincito Qureshi Medicare annual well ness visit, subsequent Z00.00 ; CAD, 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 [address] [facility] [place] [address] 12/10/2023 [facility] [address] [place] [address] 12/11/2023 [facility] [address] [place] [address] 12/17/2023 [facility] [address] [place] [address] 12/17/2023 [facility] [address] [facility] [address] [place] [address] 12/17/2023 Chapincito Qureshi [facility]- [facility] [address] [place] [address] 12/30/2023 [facility] [address] [facility] [address] [place] [address] 02/05/2024 [facility] [address] [facility] [address] [place] [address] 02/05/2024 [facility] [address] [facility] [address] [place] [address] 07/25/2024 [facility] Assessments Encounter Date Diagnosis (ICD Code) Assessment Notes Treatment Notes Treatment Clinical Notes Section Notes 11/26/2023 Primary hypertension (ICD-10 - I10) controlled 11/26/2023 CAD, multiple vessel (ICD-10 - I25.10) stable and anticoagulated 07/15/2024 Medicare annual wellness visit, subsequent (ICD-10 - Z00.00) diet and exercise 07/15/2024 CAD, multiple vessel (ICD-10 - I25.10) stable 07/15/2024 Essential hypertension (ICD-10 - I10) controlled 11/26/2023 Mixed hyperlipidemia (ICD-10 - E78.2) check labs on statin 11/26/2023 Type 2 diabetes mellitus with diabetic peripheral angiopathy and gangrene, without long-term current use of insulin (ICD-10 - E11.52) reviewed eye and foot care. Has regular follow up with foster winder in [facility] check labs today. 07/15/2024 Mixed hyperlipidemia (ICD-10 - E78.2) check labs on statin 07/15/2024 Type 2 diabetes mellitus with other circulatory complications (ICD-10 - E11.59) reviewed eye and foot care. 07/15/2024 [facility] (current) use of insulin (ICD-10 - Z79.4) 07/15/2024 MCI (mild cognitive impairment) (ICD-10 - G31.84) 07/15/2024 Vitamin D deficiency (ICD-10 - E55.9) Plan Of Treatment Pending Test Test Name Order Date Hemoglobin A1c 05/21/2023 Hemoglobin A1c 11/26/2023 Triiodothyronine (T3) 11/26/2023 Triiodothyronine (T3) 05/21/2023 CBC With Differential/Platelet CBC With Differential/Platelet T4 and TSH 11/26/2023 T4 and TSH 05/21/2023 Vitamin D, 25-Hydroxy 07/15/2024 Microalb/Creat Ratio, Randm Ur 4 Microalb/Creat Ratio, Randm Ur 4 Lipid Panel And Chol/HDL Ratio 4 Lipid Panel And Chol/HDL Ratio 4 Chem-Comprehensive 05/21/2023 Chem-Comprehensive 11/26/2023 Urinalysis IH 11/26/2023 Urinalysis IH 05/21/2023 PSA, total 05/21/2023 CBC w auto diff 07/15/2024 Comprehensive metabolic panel (CMP) 06/19 Differential Automated 07/15/2024 Hemoglobin A1C 07/15/2024 Lipid Panel 07/15/2024 PSA, Screen 07/15/2024 T3 Free 07/15/2024 TSH Reflex FT4 07/15/2024 UA, reflex Micro to Culture 07/15/2024 Vit D 25OH 07/15/2024 eGFR 07/15/2024 Next Appt Details Provider Name:Chapincito Qureshi, 10/14/2024 09:15:00 AM, [address] [facility] [address] [address], [place], [address], Insurance Providers Payer Name Payer Address Payer Phone Subscriber Number Group Number Insured Name Patient Relationship to Insured Coverage Start Date Coverage End Date Medicare [address] [address] [place] [address] [id number] Huy Khan Self - patient is the insured [facility] [address] [place] [address] [id number] Huy Khan Self - patient is the insured Medical (General) History Surgical History Surgery Date(Month/Year) Sinus Surgery; 2015-03-26 Hospitalization History Reason Date(Month/Year)
--- OUTSIDE RECORDS SUMMARY | 2024-08-24 13:18 | XMS_ITS | Clinical Summary ---
Author Organization [facility] Address [address] [place] [address] Care Team Providers Care Director Recreation Center Name Role Phone Chapincito Qureshi MD Primary Care Provider [phone] Source Comments [facility],non-owned Affiliates and Associated Physician Practices is amultiple site organization consisting of ambulatory clinics and hospital sitesin [place], [place], [place] and [place]. This disclosure is being madepursuant to the Care Everywhere program and may not contain all information available regarding this patient. Last updated 18.[facility] [employer] Immunizations Name Administration Dates Next Due Covid Pfizer primary Monovalent 12+ yr 0.3ml Social History Tobacco Use Types Packs/Day Years Used Date Smoking Tobacco: Never Assessed Sex and Gender Information Value Date Recorded Sex Assigned at Not on file Gender Identity Not on file Sexual Orientation Not on file Plan of Treatment Health Maintenance Due Date Last Done Comments DTAP/TDAP/TD VACCINES (1 - Tdap) 1961 PNEUMOCOCCAL VACCINE 50+ (1 of 1 - PCV) 1992 ZOSTER VACCINE (1 of 2) 1992 Respiratory Syncytial Virus (RSV) Vaccine Pt: or over 60 yrs (1 - 1-dose 75+ series) 2017 COVID-19 VACCINE (2 - 2023-2 5 season) 2024 08/31/2021 DEPRESSION SCREENING 05/18/2024 INFLUENZA VACCINE (Season Ended) 2025 HEPATITIS B VACCINE Aged Out No longe r eligible based on patient's age to complete this topic HIB VACCINE Aged Out No longer eligi ble based on patient's age to complete this topic HPV VACCINE Aged Out No longer eligi ble based on patient's age to complete this topic MENINGOCOCCAL (Group B) VACC INE SHARED DECISION-MAKING Aged Out No longer eligibl e based on patient's age to complete this topic MENINGOCOCCAL GROUPS A/C/Y/W VACCINE Aged Out No longer eligible b ased on patient's age to complete this topic Care Teams Director Recreation Center Relationship Specialty Start Date End Date Chapincito Qureshi MD [address] [facility] [address] [place] [address] PCP - General Internal Medicine 08/26/17
--- OUTSIDE RECORDS SUMMARY | 2024-08-24 13:19 | XMS_ITS ---
Author Organization [facility] tae Address [address] [facility] [address] [place] [address] Care Team Providers Care Machine Accountant Name Role Phone Chapincito Qureshi Primary Care Provider Chapincito Qureshi MD Unavailable Unavailable Allergies Allergen (clinical drug ingredient) Drug/Non Drug Allergy documented on EMR Reaction Allergy Type Onset Date Status Iodine Unknown Drug Allergy 03/26/2015 Inacti ve Results Component Value Reference Range Notes CBC w auto diff (Not yet rev iewed by provider) Interpretation: Performing Lab:[facility] , [address] [facility] [facility] [address] Notes/Report: WBC 4.4 3.8-9.9 K/cumm Hgb 13.8 [...] (Not yet reviewed by provider) Interpretation: Performing Lab:[facility] , [address] [facility] [address] Notes/Report: Sodium 143 135-145 mmol/L Plasma Potassium [...] yet revi ewed by provider) Interpretation: Performing Lab:[facility] , [address] [place] [address]. [facility] [address] Notes/Report: Hemoglobin A1C 6.7 4.0-5.6 % Est Average Glucose 146 The ADA recommends reporting an estimated Average Glucose (eAG) with all Hemoglobin A1c results using the equation derived from a study of 507 normal and diabetic adults. Minority populations were underrepresented and children were not included. (Diabetes Care 31:7075-7778, 2008). The eAG is not equivalent to a fasting glucose. Lipid Panel (Not yet reviewe d by provider) Interpretation: Performing Lab:[facility] , [address] [facility] [address] Notes/Report: Cholesterol 121 30-199 mg/dL Interpretive Data [...] 2011;128:S213 2. NCEP Expert Panel. Circulation 2004;110:227 3. Nash M et al. GIOVANNA Cardiol. 2019September 15;5(5):540-548. doi: 10.1001/[email or web address] 3 Current Interpretive Data was last revised on [...] yet reviewe d by provider) Interpretation: Performing Lab:[facility] , [address] [facility] [address] Notes/Report: PSA-Total 3.69 <=6.20 ng/mL Interpretive Data [...] (Not yet reviewed by provider) Interpretation: Performing Lab:[facility] , [address] [facility] [address] Notes/Report: Free T3 2.9 2.0-4.4 pg/mL TSH Reflex FT4 (Not yet revi ewed by provider) Interpretation: Performing Lab:[facility] , [address] [facility] [address] Notes/Report: TSH ([place]) 1.50 0.30-4.20 mcIUnit/mL UA, reflex Micro to Culture (Not yet reviewed by provider) Interpretation: Performing Lab:[facility] , [address] [place] [address] Notes/Report: Color, Ur Yellow Yellow Clarity, Ur [...] tendency for uric acid stone formation. Source: [employer] Current Interpretive Data was last revised on 2017 Protein, Ur Ql Trace Negative Glucose, Ur Ql 4+ Negative Ketones, Ur Negative Negative Bilirubin, Ur Negative Negative Blood, Ur Negative Negative Urobilinogen, Ur <2.0 <2.0 mg/dL Nitrite, Ur Negative Negative Leukocyte Esterase, Ur Negative Negative UA reflex comment See Below Reflex con ditions for microscopic UA and culture not met. REASON FOR VISIT AWV, *Medicare Annual Wellness Visit Subsiquent, Normal Follow Up Medications Medication SIG (Take, Route, Frequency, Duration) Notes Start Date End Date Status Donepezil HCl 5 MG 1 tablet in the morn ing Orally Once a day for 30 days 07/15/2024 Active Fosinopril Sodium 40 MG 1 tablet Orally Once a day for 30 day(s) Active Albuterol Sulfate HFA 108 (90 Base) MCG/ACT 1 puff as needed Inhalation every 6 hours for 30 days 12/17/2023 Not-Taking Tradjenta 5 MG TAKE 1 TABLET BY [...] for 30 days As needed 04/30/2023 Not-Taking Donepezil HCl 5 MG 1 tablet at bedtime Orally Once a day for 30 days 06/18/2023 Not-Taking Citalopram Hydrobromide 10 MG 1 tablet Orally Once a day for 90 days Active Brilinta 60 MG 1 tablet Orally Twic e a day for 90 days Active Carvedilol 6.25 MG TAKE 1 TABLET TWICE A DAY WITH FOOD Oral for 90 days 04/26/2019 Active Rosuvastatin Calcium 40 MG 1 tablet Oral Once a day for 90 Days Active Problems Problem Type SNOMED Code ICD Code Onset Dates Problem Status W/U Status Risk Notes Problem [id number] CAD, 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 confirmed Problem 15506108 Essential hypertension (I10) Active confirmed Problem [id number] MCI (mild cognitive impairment) (G31.84) Active confirmed Problem 67011562 Vitamin D deficiency (E55.9) Active confirmed Vital Signs Temperature 98.0 degrees Fahrenheit 07/15/19 25 Blood pressure systolic 122 mm Hg 07/15/19 25 Blood pressure diastolic 72 mm Hg 025 Heart Rate 60 /min 07/15/2024 Height 67 in 07/15/2024 Weight 146.3 lbs 07/15/2024 BMI 22.91 kg/m2 07/15/2024 Oximetry 97 % 07/15/2024 Height-cm 170.18 cm 07/15/2024 Weight-kg 66.35 kg 07/15/2024 Encounters Encounter Location Date Provider Diagnosis [facility] [address] [facility] [address] [place] [address] 07/15/2024 Chapincito Qureshi Medicare annual well ness visit, subsequent Z00.00 ; CAD, multiple vessel I25.10 ; Essential hypertension I10 ; Mixed hyperlipidemia E78.2 ; Type 2 diabetes mellitus with other circulatory complications E11.59 ; [facility] (current) use of insulin Z79.4 ; MCI (mild cognitive impairment) G31.84 and Vitamin D deficiency E55.9 Assessments Encounter Date Diagnosis (ICD Code) Assessment Notes Treatment Notes Treatment Clinical Notes Section Notes 07/15/2024 Medicare annual wellness visit, subsequent (ICD-10 - Z00.00) diet and exercise 07/15/2024 CAD, multiple vessel (ICD-10 - I25.10) stable 07/15/2024 Essential hypertension (ICD-10 - I10) controlled 07/15/2024 Mixed hyperlipidemia (ICD-10 - E78.2) check labs on statin 07/15/2024 Type 2 diabetes mellitus with other circulatory complications (ICD-10 - E11.59) reviewed eye and foot care. 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 Pending Test Test Name Order Date Vitamin D, 25-Hydroxy 07/15/2024 CBC w auto diff 07/15/2024 Comprehensive metabolic panel (CMP) 06/19 Hemoglobin A1C 07/15/2024 Lipid Panel 07/15/2024 PSA, Screen 07/15/2024 T3 Free 07/15/2024 TSH Reflex FT4 07/15/2024 UA, reflex Micro to Culture 07/15/2024 Next Appt Details Follow Up: 1 Year,6 Months, Reason: Provider Name:Chapincito Qureshi, 10/14/2024 09:15:00 AM, [address], [place], [address], Progress Notes * Huy PEREZDOB:1940 ( 83 yo M)Acc No.[id number]:07/15/2024 Progress Note Patient: Huy DUMONT Provider: Makenna QURESHI MD :1940 A ge:83 Y S ex:Male Date:07/15/2024 Address:[address] [place] [address], [id number] Subjective: * Chief Complaints: * A [place] Annual Wellness Visit SubsiquentNormal Follow Up * [facility]: - N o providers on record. Maureen aguilar AWV: Health Status H ow is your overall health? G ood. H ealth Concerns W hat are your biggest concerns about managing your health? N one. E mergency Room Visits H ow many times in the last 6 months have you been to the emergency room? 0 times. H ospital Visits H ow many time in the last 6 months have you been admitted to the hospital? 0 times. H ome/Safety D o you have any concerns regarding home safety? N one, D o you wear a seatbelt? Y es. D iet T he patient describes their diet as: Diabetic,____. E xercise T he patient currently exercises: D aily. A ctivities of Daily Living A DLs: A ble to preform all ADLs independently, I ADLS: A ble to perform all IADLs independently. C ognitive Screening D o you or your family members have any concerns about your memory? _ ___, M ini-Gog Three Item Recall: [choose three words] P atient scored 3/3, D epression Screening was performed [facility] depression screening was negative. B laddar Concerns B ladder Concerns H as no urinary incontinence. V ision Screening V ision Screening: N o current vision problems identified. H earing Screening H earing Screening: N o abnormalities detected on hearing screening. O pioid/Alcohol/Illicit Drugs Use T he patient is currently prescribed opioids? N o. [facility] _ __. D epression Screening D epression Screening was Preformed. Screening was: N egative 0. 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 * ROS: G eneral / Constitutional: Patient denies _ ____, chills, fever. P atient complains of _ ____. R espiratory: Patient denies _ ____, cough, shortness of breath with exertion. P atient complains of _ ____. C ardiovascular: Patient denies _ ____, chest pain with exertion, dyspnea on exertion, irregular heartbeat. P atient complains of _ ____. G astrointestinal: Patient denies _ ____, blood in stool, change in bowel habits, abdominal pain. P atient complains of _ ____. G enitourinary: Patient denies _ ____, abdominal pain / swelling, blood in the urine, difficulty urinating. P atient complains of _ ____. S kin: Patient denies _ ____. P atient complains of _ ____. * Medical History: * Surgical History: * Hospitalization/Major Diagno stic Procedure: * Medications: T akingFosinopril Sodium 40 MG Tablet 1 tablet Orally Once a day Tradjenta 5 MG Tablet TAKE 1 TABLET BY MOUTH EVERY MORNING Oral Rosuvastatin Calcium 40 MG Tablet 1 tablet Oral Once a day Citalopram Hydrobromide 10 MG Tablet 1 tablet Orally Once a day Carvedilol 6.25 MG Tablet TAKE 1 TABLET TWICE A DAY WITH FOOD Oral Brilinta 60 MG Tablet 1 tablet Orally Twice a day Jardiance 25 MG Tablet 1 tablet Orally Once a day Taking Fosinopril Sodium 40 MG Tablet 1 tablet Orally Once a day Taking Tradjenta 5 MG Tablet TAKE 1 TABLET BY MOUTH EVERY MORNING Oral Taking Rosuvastatin Calcium 40 MG Tablet 1 tablet Oral Once a day Taking Citalopram Hydrobromide 10 MG Tablet 1 tablet Orally Once a day Taking Carvedilol 6.25 MG Tablet TAKE 1 TABLET TWICE A DAY WITH FOOD Oral Taking Brilinta 60 MG Tablet 1 tablet Orally Twice a day Taking Jardiance 25 MG Tablet 1 tablet Orally Once a day Not-TakingLORazepam 0.5 MG Tablet 1 tablet at bedtime as needed Orally twice a day As neededALPRAZolam 0.25 MG Tablet 1 tablet Orally Twice a day As neededNirmatrelvir&Ritonavir 300/100 20 x 150 MG & 10 x 100MG Tablet Therapy Pack as directed Orally twice a day Donepezil HCl 5 MG Tablet 1 tablet at bedtime Orally Once a day Albuterol Sulfate HFA 108 (90 Base) MCG/ACT Aerosol Solution 1 puff as needed Inhalation every 6 hours Tresiba FlexTouch 100 UNIT/ML Solution Pen-injector 15 units Subcutaneous once daily at 8 pm Not-Taking LORazepam 0.5 MG Tablet 1 tablet at bedtime as needed Orally twice a day As neededNot- Taking ALPRAZolam 0.25 MG Tablet 1 tablet Orally Twice a day As neededNot-Taking Nirmatrelvir&Ritonavir 300/100 20 x 150 MG & 10 x 100MG Tablet Therapy Pack as directed Orally twice a day Not-Taking Donepezil HCl 5 MG Tablet 1 tablet at bedtime Orally Once a day Not-Taking Albuterol Sulfate HFA 108 (90 Base) MCG/ACT Aerosol Solution 1 puff as needed Inhalation every 6 hours Not-Taking Tresiba FlexTouch 100 UNIT/ML Solution Pen-injector 15 units Subcutaneous once daily at 8 pm Objective: * Vitals: B P:122/72mm Hg, HR:60/min, Temp:98.0F, Oxygen sat %:97%, Wt:146.3lbs, Wt- k.35kg, Ht:67in, Ht-cm:170.18cm, BMI:22.91Index, Body Surface Area:1.77. * Examination: G eneral Examination: General appearance: _ ____, alert, pleasant, well-nourished and in no acute distress, alert, well- nourished and in no acute distress, elderly, male. Head: _ ____. Eyes: _ ____, both eyes, extraocular movement intact (EOMI), pupils equal, round, reactive to light and accommodation. Ears: _ ____. Nose: _ ____. Oral cavity: _ ____, normal, mucosa moist. Throat: _ ____. Neck / thyroid: _ ____. Lymph nodes: _ ____. Skin: _ ____. Heart: _ ____, regular rate and rhythm without murmurs, gallops, clicks or rubs, S1 and S2 are normal and no S3 and S4 gallop. Lungs: _ ____, clear to auscultation bilaterally, with good air movement and no rales, rhonchi or wheezes. Chest: _ ____. Breasts: _ ____. Abdomen: _ ____, soft with good bowel sounds, nontender, and no masses or hepatosplenomegaly. Back: _ ____. Neurologic: _ ____, nonfocal, alert and oriented, cognitive exam grossly normal, cooperative with exam. Psych: _ ____, alert and oriented x 3, cognitive function intact, cooperative with exam, maintains good eye contact, with good judgement and insight. ? Assessment: * Assessment: 1. M lauren annual wellness visit, subsequent - Z00.00 (Primary) 2 . C AD, multiple vessel - I25.10 3 . E ssential hypertension - I10 4 .?Mixed hyperlipidemia - E78.2 5 . T ype 2 diabetes mellitus with other circulatory complications - E11.59 6 . 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 7. M CI (mild cognitive impairment) - G31.84 8 . V itamin D deficiency - E55.9 Plan: * Treatment: 2. C AD, multiple vessel L AB: CBC w auto diff L AB: Comprehensive metabolic panel (CMP) L AB: Hemoglobin A1C L AB: Lipid Panel L AB: PSA, Screen L AB: T3 Free L AB: TSH Reflex FT4 L AB: UA, reflex Micro to Culture Notes: stable 3. E ssential hypertension L AB: CBC w auto diff L AB: Comprehensive metabolic panel (CMP) L AB: Hemoglobin A1C L AB: Lipid Panel L AB: PSA, Screen L AB: T3 Free L AB: TSH Reflex FT4 L AB: UA, reflex Micro to Culture Notes: controlled 4. M ixed hyperlipidemia L AB: CBC w auto diff L AB: Comprehensive metabolic panel (CMP) L AB: Hemoglobin A1C L AB: Lipid Panel L AB: PSA, Screen L AB: T3 Free L AB: TSH Reflex FT4 L AB: UA, reflex Micro to Culture Notes: check labs on statin 5. T ype 2 diabetes mellitus with other circulatory complications L AB: CBC w auto diff L AB: Comprehensive metabolic panel (CMP) L AB: Hemoglobin A1C L AB: Lipid Panel L AB: PSA, Screen L AB: T3 Free L AB: TSH Reflex FT4 L AB: UA, reflex Micro to Culture Notes: reviewed eye and foot care. 6. L roxie term (current) use of insulin L AB: CBC w auto diff L AB: Comprehensive metabolic panel (CMP) L AB: Hemoglobin A1C L AB: Lipid Panel L AB: PSA, Screen L AB: T3 Free L AB: TSH Reflex FT4 L AB: UA, reflex Micro to Culture 7. V itamin D deficiency L AB: Vitamin D, 25-Hydroxy * Procedure Codes: G 0439 ANNUAL WELLNESS VST; PPS SUBSQT [id number] ANNUAL DEPRESSION SCREENING 15 [id number] GLYCATED HEMOGLOBIN TEST, Modifiers: QW * Preventive Medicine: Preventive Wellness Plan: A nnual Wellness Visit S chedule a wellness visit every 12 months with your primary care provider. STATUS: U p To Date, D ate of Last Exam: 0 07/15/2024. B reast Cancer Screening M ammogram should be performed every 12 - 27 months, depending on your risk status. STATUS: _ __. C olorectal Screening C olorectal Cancer Screening - Colonoscopy should be performed once every 10 years. STATUS: U p To Date, F OBT - Screening fecal occult blood test should be performed once every years. _ __. I nfluenza Vaccine I nfluenza vaccine should be given once every flu season. STATUS: U p To Date, D ate of Last Exam: 0 02/03/2024. P neumococcal Vaccine P neumococcal Vaccine should be given once in a lifetime. STATUS: Eugenio Carrion ate of Last Vaccination: 0 02/03/2024, S hingrix vaccine should be given once a lifetime. Eugenio Carrion ate of Vaccination: 0 06/10/2023.?Diabetic Eye Exam E ye/ Diabetic Eye Exam: U p To Date. Screenings: F all risk screening F all Risk Assessment: _ __. * Follow Up: 1 Year,6 Months * Billing Information: * Visit Code: [id number] Preventive Care Est Pt. Age 65 and over. * Procedure Codes: G0439 ANNUAL WELLNESS VST; PPS SUBSQT VST. G0444 ANNUAL DEPRESSION SCREENING 15 MIN. 87406 GLYCATED HEMOGLOBIN TEST. 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 Medicare AWV Health Status How is your overall health?: Good Health Concerns What are your bigges t concerns about managing your health?: None Emergency Room Visits How many times in the last 6 months have you been to the emergency room?: 0 times Hospital Visits How many time in the last 6 months have you been admitted to the hospital?: 0 times Home/Safety Do you have any concerns regardi ng home safety?: None Do you wear a seatbelt?: Yes Diet The patient describes their diet as:: Diabetic,____ Exercise The patient currently exercises: : Daily Activities of Daily Living ADLs:: Able to prefor m all ADLs independently IADLS:: Able to perform all IADLs indepe ndently Cognitive Screening Do you or your famil y members have any concerns about your memory?: ____ Mini-Gog Three Item Recall: [choose thre e words]: Patient scored 3/3 Depression Screening was performed: Marisol ent depression screening was negative Bladdar Concerns Bladder Concerns: Has no urinar y incontinence Vision Screening Vision Screening:: N o current vision problems identified Hearing Screening Hearing Screening:: No abnormalities detected on hearing screening Opioid/Alcohol/Illicit Drugs Use The pat ient is currently prescribed opioids?: No Patient Care Team Patient Care Team: ___ Depression Screening Depression Screenin g was Preformed. Screening was:: Negative 0 Examination Category Sub-Category Detail Notes Category Not es General Examination General appearance: , a lert, pleasant, well-nourished and in no acute distress, alert, well-nourished and in no acute distress, elderly, male Head: Eyes: , both eyes, ex traocular movement intact (EOMI), pupils equal, round, reactive to light and accommodation Ears: Nose: Throat: Neck / thyroid: Heart: , regular rate and rhythm without murmurs, gallops, clicks or rubs, S1 and S2 are normal and no S3 and S4 gallop Chest: Lungs: , clear to ausc ultation bilaterally, with good air movement and no rales, rhonchi or wheezes Abdomen: , soft with goo d bowel sounds, nontender, and no masses or hepatosplenomegaly Neurologic: , nonfocal, deanna rt and oriented, cognitive exam grossly normal, cooperative with exam Skin: Back: Breasts: Lymph nodes: Psych: , alert and ascencion ented x 3, cognitive function intact, cooperative with exam, maintains good eye contact, with good judgement and insight Oral cavity: , normal, mucos a moist
--- OUTSIDE RECORDS SUMMARY | 2024-08-24 13:19 | XMS_ITS ---
Author Organization [facility] Address [address] [facility] [address] [facility] [address] [place] [address] Care Team Providers Care Industrial Registered Nurse Name Role Phone Titus SERRANO, [facility] Primary Care Provider FRANCIS Gomes Unavailable [phone] Encounters Encounter Location Date Provider Diagnosis [facility] [address] [facility] [address] [place] [address] 08/20/2024 FRANCIS SHARPE Coronary artery disease involving [place] coronary artery of [place] heart without angina pectoris I25.10 ; Dyslipidemia E78.5 ; Essential hypertension I10 and Coronary angioplasty status Z98.61 Assessments Encounter Date Diagnosis (ICD Code) Assessment Notes Treatment Notes Treatment Clinical Notes Section Notes 08/20/2024 Coronary artery disease involving [place] coronary artery of [place] heart without angina pectoris (ICD-10 - I25.10) 08/20/2024 Dyslipidemia (ICD-10 - E78.5) 08/20/2024 Essential hypertension (ICD-10 - I10) 08/20/2024 Coronary angioplasty status (ICD-10 - Z98.61) Plan Of Treatment Pending Test Test Name Order Date Testosterone,Free and Total 08/20/2024 PSA, total 08/20/2024 Lipoprotien (a), [place] 3, Co Q10, A1c, Homocystine, HS CRP, TMAO, ALT, AST, FL, Uric Acid, GGT, ADMA, Vitamin D3, Insulin Level 08/20/2024 Progress Notes * Huy KHANDOB:1940 ( 84 yo M)Acc No.[id number]:08/20/2024 Patient: Huy DUMONT :1940 A ge:84 Y S ex:Male Address:[address] [place] [address], [facility] Subjective: * Chief Complaints: * * Medical History: * Surgical History: * Hospitalization/Major Diagno stic Procedure: * Medications: Objective: * Vitals: * Physical Examination: Assessment: * Assessment: 1. C oronary artery disease involving [place] coronary artery of [place] heart without angina pectoris - I25.10 2 . D yslipidemia - E78.5 3 . E ssential hypertension - I10 4 . C oronary angioplasty status - Z98.61 Plan: * Treatment: 2. D yslipidemia L AB: Testosterone,Free and Total L AB: PSA, total 3. E ssential hypertension L AB: Testosterone,Free and Total L AB: PSA, total 4. C oronary angioplasty status L AB: Testosterone,Free and Total L AB: PSA, total * Procedure Codes: * * Date:
--- OUTSIDE RECORDS SUMMARY | 2024-08-24 13:19 | XMS_ITS ---
Author Organization [facility] tae Address [address] [facility] [address] [place] [address] Care Team Providers Care Temperature Inspector Name Role Phone Chapincito Qureshi Primary Care Provider Chapincito Qureshi MD Unavailable Unavailable REASON FOR VISIT 6 month f/u Encounters Encounter Location Date Provider Diagnosis [facility] [address] [facility] [facility] [address] [place] [address] 06/17/2024 Chapincito Qureshi Plan Of Treatment Next Appt Details Provider Name:Chapincito Qureshi, 10/14/2024 09:15:00 AM, [address] [facility] [facility] [address], [place], [address], Progress Notes * ERIN GriseldajacobDOB:1940 ( 84 yo M)Acc No.[id number]:06/17/2024 Progress Notes Patient: Griselda DUMONTz Provider: Makenna QURESHI MD :1940 A ge:83 Y S ex:Male Date:06/17/2024 Address:[address] [place], [place] [id number] Subjective: * Chief Complaints: * 1 . 6 month f/u. * Medical History: Objective: * Vitals: Assessment: Plan: * Treatment: * Billing Information: * Visit Code: * Procedure Codes: * Electronic signature of Mainor Qureshi MD on 08/24/2024 at 01:19 PM CDT Sign off status: Pending * Provider: Makenna QURESHI MD Date: 0 06/17/2024 Generated for Julian reddy/Meli/Steph on: 0 08/24/2024 01:19 PM PAUL
--- OUTSIDE RECORDS SUMMARY | 2024-08-24 13:19 | XMS_ITS ---
Author Organization [facility] Address [address] [facility] [address] [facility] [address] [place] [address] Care Team Providers Care Inletter Name Role Phone Titus SERRANO, Chapincito Primary Care Provider FRANCIS Gomes Unavailable [phone] REASON FOR VISIT Blood work results/ Carotid results Encounters Encounter Location Date Provider Diagnosis [facility] [address] [facility] [address] [place], [place] [id number] 08/19/2024 FRANCIS SHARPE Plan Of Treatment No Information Progress Notes * Huy KHANDOB:1940 ( 84 yo M)Acc No.[id number]:08/19/2024 Progress Notes Patient: Huy DUMONT Provider: Ryan Sharpe MD :1940 A ge:84 Y S ex:Male Date:08/19/2024 Address:[address] [place] [address] Pcp:Chapincito Qureshi MD Subjective: * Chief Complaints: * 1 . Blood work results/ Carotid results. * Medical History: Objective: * Vitals: Assessment: Plan: * Treatment: * * Electronic signature of ABENA SHARPE MD on 08/24/2024 at 01:19 PM CDT Sign off status: Pending * Provider: Ryan Sharpe MD Date: 08/19/2024 Generated for Printi ng/Faxing/eTransmitting on: 08/24/2024 01:19 PM CDT
--- OUTSIDE RECORDS SUMMARY | 2024-08-24 13:20 | XMS_ITS ---
Author Organization [facility] Address [address] [facility] [address] [place] [address] Care Team Providers Care Power Generation Plant Operator Name Role Phone Titus SERRANO, [facility] Primary Care Provider FRANCIS Gomes Unavailable [phone] REASON FOR VISIT Carotid-carotid intima media thickness Medications Medication SIG (Take, Route, Frequency, Duration) Notes Start Date End Date Status Colchicine 0.6 MG 1 tablet Orally abraham y for 30 days 07/26/2024 Active Fosinopril Sodium 40 MG 1 tablet Orally Once a day Active B Complex - as directed Orally Not-Taking Carvedilol 6.25 mg TAKE 1 TABLET TWICE A DAY WITH FOOD Not-Taking Co Q 10 100 MG 4 tabs Orally daily for 30 days 07/24/2024 Active Atorvastatin Calcium 40 MG 1 tablet Orally Once a day for 30 day(s) Active metFORMIN HCl 500 MG 1 tablet with a kalani l Orally twice daily Active Brilinta 60 MG 1 tablet Orally twic e daily for 30 days Active Problems Problem Type SNOMED Code ICD Code Onset Dates Problem Status W/U Status Risk Notes Problem Occlusion and stenosis of multiple and bilateral cerebral arteries (652652072) Occlusion and stenosis of bilateral carotid arteries (I65.23) Active confirmed Problem Ataxic gait (86214695) 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) Active confirmed Vital Signs Blood pressure systolic 121 mm Hg 08/20/19 25 Blood pressure diastolic 76 mm Hg 025 Heart Rate 88 /min 08/19/2024 Encounters Encounter Location Date Provider Diagnosis [facility] [address] [facility] [address] [place], [place] [id number] 08/19/2024 FRANCIS SHARPE Coronary artery disease involving sleetmute coronary artery of sleetmute heart without angina pectoris I25.10 ; Dyslipidemia E78.5 ; Essential hypertension I10 ; Bruit (arterial) R09.89 ; Murmur, cardiac R01.1 ; Occlusion and stenosis of bilateral carotid arteries I65.23 and Ataxic gait R26.0 Assessments Encounter Date Diagnosis (ICD Code) Assessment Notes Treatment Notes Treatment Clinical Notes Section Notes 08/19/2024 Coronary artery disease involving sleetmute coronary artery of sleetmute heart without angina pectoris (ICD-10 - I25.10) max med -glp1a /check LP[a],other parameters 08/19/2024 Dyslipidemia (ICD-10 - E78.5) 08/19/2024 Essential hypertension (ICD-10 - I10) 08/19/2024 Bruit (arterial) (ICD-10 - R09.89) 08/19/2024 Murmur, cardiac (ICD-10 - R01.1) 08/19/2024 Occlusion and stenosis of bilateral carotid arteries (ICD-10 - I65.23) Has modest carotid disease,signific ant intima-media thgickenning in the 75th percentile-will repeat it after max med rx and obtain the labs,will add additional blood test and max med rx and reasses of CIMT decrease 08/19/2024 Ataxic gait (ICD-10 - R26.0) No signs of worsenning,verte bro-basilar circulation ok Plan Of Treatment Treatment Notes Assessment Notes Coronary artery disease invo lving sleetmute coronary artery of sleetmute heart without angina pectoris max med -glp1a /check LP[a],other parameters Occlusion and stenosis of bi lateral carotid arteries Has modest carotid disease,significant intima-media thgickenning in the 75th percentile-will repeat it after max med rx and obtain the labs,will add additional blood test and max med rx and reasses of CIMT decrease Ataxic gait No signs of worsenni ng,vertebro-basilar circulation ok Next Appt Details Follow Up: 6 Months, Reason: Progress Notes * Oscar KHAN:1940 ( 84 yo M)Acc No.[id number]:08/19/2024 Patient: Huy DUMONT Provider: Ryan Sharpe MD :1940 A ge:84 Y S ex:Male Date:08/19/2024 Address:[address] [place], [place] [id number] Pcp:Chapincito Qureshi MD Subjective: * Chief Complaints: * C arotid-carotid intima media thickness * HPI: C onstitutional: Patient is a 83 year old male with a PMhx of CAD, HTN, HLD, and DM who is presenting today for a follow up.Has some mild cp with/without exertion,but overall ok,concerned about cv protection,has had modest carotid disease,some dizziness. * ROS: G eneral/Constitutional: Denies C hange in appetite. D enies C hills. D enies F atigue. D enies F ever. D enies H eadache. D enies L ightheadedness. D enies N ight sweats, d enies. D enies S leep disturbance. D enies?Weight gain. D enies W eight loss. C ardiovascular: Admits C hest pain. D enies C laudication. D enies D ifficulty laying flat. A dmits D izziness. D enies D yspnea on exertion.?Denies F luid accumulation in the legs. D enies H igh blood pressure. D enies Irregular heartbeat. D enies P alpitations. D enies S hortness of breath. D enies W eakness. D enies W eight gain. P eripheral Vascular: Denies A bsent pulses in hands. D enies A bsent pulses in feet. D enies B lanching of skin. D enies B lood clots in legs, D enies.?Denies C old extremities. D enies D ecreased sensation in extremities. D enies Pain/cramping in legs after exertion. D enies P ainful extremities. D enies U lceration of feet. * Medical History: * Medications: T akingFosinopril Sodium 40 MG Tablet 1 tablet Orally Once a day metFORMIN HCl 500 MG Tablet 1 tablet with a meal Orally twice daily Atorvastatin Calcium 40 MG Tablet 1 tablet Orally Once a day Brilinta 60 MG Tablet 1 tablet Orally twice daily Co Q 10 100 MG Capsule 4 tabs Orally daily Colchicine 0.6 MG Tablet 1 tablet Orally daily Taking Fosinopril Sodium 40 MG Tablet 1 tablet Orally Once a day Taking metFORMIN HCl 500 MG Tablet 1 tablet with a meal Orally twice daily Taking Atorvastatin Calcium 40 MG Tablet 1 tablet Orally Once a day Taking Brilinta 60 MG Tablet 1 tablet Orally twice daily Taking Co Q 10 100 MG Capsule 4 tabs Orally daily Taking Colchicine 0.6 MG Tablet 1 tablet Orally daily Not-Taking/PRNB Complex - Tablet as directed Orally Carvedilol 6.25 mg Tablet TAKE 1 TABLET TWICE A DAY WITH FOOD Not-Taking/PRN B Complex - Tablet as directed Orally Not-Taking/PRN Carvedilol 6.25 mg Tablet TAKE 1 TABLET TWICE A DAY WITH FOOD Objective: * Vitals: O 2: 96, BP:121/76mm Hg, HR:88/min. * Examination: G eneral Examination: GENERAL APPEARANCE: i n no acute distress, well developed, well nourished. HEAD: n ormocephalic, atraumatic. EYES: p upils equal, round, reactive to light and accommodation. EARS: n ormal. ORAL CAVITY: m ucosa moist. THROAT: c lear. NECK/THYROID: n harsh supple, full range of motion, no cervical lymphadenopathy,+bruit. SKIN: n o suspicious lesions, warm and dry. HEART: s ystolic+heart murmur, regular rate and rhythm, S1, S2 normal. LUNGS: c lear to auscultation bilaterally. ABDOMEN: n ormal, bowel sounds present, soft, nontender, nondistended. EXTREMITIES: n o clubbing, cyanosis, or edema. NEUROLOGIC: n onfocal, motor strength normal upper and lower extremities, sensory exam intact. Assessment: * Assessment: 1. C oronary artery disease involving sleetmute coronary artery of sleetmute heart without angina pectoris - I25.10 (Primary) 2 . D yslipidemia - E78.5 3 . E ssential hypertension - I10 4 . B ruit (arterial) - R09.89 5 . M urmur, cardiac - R01.1 6 . O cclusion and stenosis of bilateral carotid arteries - I65.23 7 . A taxic gait - R26.0 Plan: * Treatment: 2. O cclusion and stenosis of bilateral carotid arteries Notes: Has modest carotid disease,significant intima-media thgickenning in the 75th percentile-will repeat it after max med rx and obtain the labs,will add additional blood test and max med rx and reasses of CIMT decrease 3. A taxic gait Notes: No signs of worsenning,vertebro-basilar circulation ok * Procedure Codes: 9 3880 EXTRACRANIAL [id number] CAROTID INTIMA ATHEROMA EVAL * Follow Up: 6 Months * * Sign off status: Completed true * Provider: Ryan Sharpe MD Date: 08/19/2024 Generated for Julian reddy/Meli/eTransmitting on: 08/24/2024 01:19 PM CDT History and Physical Notes * Examination Category Sub-Category Detail Notes Category Not es General Examination GENERAL APPEARANCE: in no ac [place] distress, well developed, well nourished HEAD: normocephalic, atrau matic EYES: pupils equal, round, reactive to light and accommodation EARS: normal THROAT: clear NECK/THYROID: neck supple, full ra nge of motion, no cervical lymphadenopathy,+bruit HEART: systolic+heart murmu r, regular rate and rhythm, S1, S2 normal LUNGS: clear to auscultatio n bilaterally ABDOMEN: normal, bowel sounds present, soft, nontender, nondistended NEUROLOGIC: nonfocal, motor stre ngth normal upper and lower extremities, sensory exam intact SKIN: no suspicious lesion s, warm and dry EXTREMITIES: no clubbing, cyanosi s, or edema ORAL CAVITY: mucosa moist
--- OUTSIDE RECORDS SUMMARY | 2024-08-25 07:26 | XMS_ITS | Clinical Summary ---
Author Organization [facility] Address [address] [place] [address] Care Team Providers Care Carpet Floor Layer Apprentice Name Role Phone Chapincito Qureshi MD Primary Care Provider [phone] Source Comments [facility],non-owned Affiliates and Associated Physician Practices is amultiple site organization consisting of ambulatory clinics and hospital sitesin [place], [place], [place] and [place]. This disclosure is being madepursuant to the Care Everywhere program and may not contain all information available regarding this patient. Last updated 18.[facility] Tattva Immunizations Name Administration Dates Next Due Covid [...] age to complete this topic Care Teams Carpet Floor Layer Apprentice Relationship Specialty Start Date End Date Chapincito Qureshi MD [address] [facility] [address] [place] [address] PCP - General Internal Medicine 08/26/17
--- OUTSIDE RECORDS SUMMARY | 2024-08-25 07:26 | XMS_ITS | Patient Health Record ---
Author Organization [facility] Address [address] [facility] [address] [place] [address] Care Team Providers Care Shareholder Name Role Phone Titus SERRANO, [facility] Primary Care Provider FRANCIS Gomes Unavailable [phone] Allergies No Known Allergies Reason For Referral No Information Medications Medication SIG (Take, Route, Frequency, Duration) Notes Start Date End Date Status Colchicine 0.6 MG 1 tablet Orally abraham y for 30 days 07/26/2024 Active Fosinopril Sodium 40 MG 1 tablet Orally Once a day Active B Complex - as directed Orally Not-Taking Atorvastatin Calcium 40 MG 1 tablet Orally Once a day for 30 day(s) Active metFORMIN HCl 500 MG 1 tablet with a kalani l Orally twice daily Active Carvedilol 6.25 mg TAKE 1 TABLET TWICE A DAY WITH FOOD Not-Taking Brilinta 60 MG 1 tablet Orally twic e daily for 30 days Active Co Q 10 100 MG 4 tabs Orally daily for 30 days 07/24/2024 Active Social History Tobacco Use: Social History Observation Description Date Details (start date - stop date) Never Smoker NA - NA Tobacco Use/Smoking Question Answer Notes Are you a nonsmoker Alcohol Screen (Audit-C) Question Answer Notes Did you have a drink containing alcohol in the p ast year? 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) Active confirmed Problem 876011979 Coronary angioplasty status (Z98.61) Active confirmed Problem 62588102 Essential hypertension (I10) Active confirmed Problem 735979607 Dyslipidemia (E78.5) Active confirmed Problem 6717770035077 Coronary artery disease involving tribe coronary artery of tribe heart without angina pectoris (I25.10) Active confirmed Problem 499753711 Controlled type 2 diabetes mellitus without complication, without long-term current use of insulin (E11.9) Active confirmed Problem 869276526 Aortic stenosis, mild (I35.0) Active confirmed Vital Signs Heart Rate 88 /min 08/19/2024 Respiratory Rate 16 /min 07/22/2024 Blood pressure diastolic 76 mm Hg 08/19/2024 Height 66 in 07/22/2024 Blood pressure systolic 121 mm Hg 08/19/2024 Weight 145 lbs 07/22/2024 BMI 23.4 kg/m2 07/22/2024 Encounters Encounter Location Date Provider Diagnosis [address] [id number] 08/19/2024 FRANCIS SHARPE [facility] [address] [place] [phone] 07/22/2024 FRANCIS SHARPE Coronary artery disease involving tribe coronary artery of tribe heart without angina pectoris I25.10 ; Dyslipidemia E78.5 ; Essential hypertension I10 ; Bruit (arterial) R09.89 and Murmur, cardiac R01.[address] [id number] 08/19/2024 FRANCIS SHARPE Coronary artery disease involving tribe coronary artery of tribe heart without angina pectoris I25.10 ; Dyslipidemia E78.5 ; Essential hypertension I10 ; Bruit (arterial) R09.89 ; Murmur, cardiac R01.1 ; Occlusion and stenosis of bilateral carotid arteries I65.23 and Ataxic gait R26.0 [facility] [address] [place] [address] 07/28/2024 FRANCIS SHARPE [facility] [address] [place] [phone] 08/20/2024 FRANCIS SHARPE Coronary artery disease involving tribe coronary artery of tribe heart without angina pectoris I25.10 ; Dyslipidemia E78.5 ; Essential hypertension I10 and Coronary angioplasty status Z98.[address] [facility] [address] [facility] [address] [place] [address] 07/24/2024 FRANCIS SHARPE [facility] [address] [facility] [address] [place] [address] 07/25/2024 FRANCIS SHARPE Assessments Encounter Date Diagnosis (ICD Code) Assessment Notes Treatment Notes Treatment Clinical Notes Section Notes 07/22/2024 Coronary artery disease involving tribe coronary artery of tribe heart without angina pectoris (ICD-10 - I25.10) Appears stable,will max GDMT,check extra labs for LP[a],omega levels,Carotid IMT/has has carotid mild disease,add colchicin for cad reversalj 08/19/2024 Dyslipidemia (ICD-10 - E78.5) 08/19/2024 Coronary artery disease involving tribe coronary artery of tribe heart without angina pectoris (ICD-10 - I25.10) max med -glp1a /check LP[a],other parameters 08/20/2024 Coronary artery disease involving tribe coronary artery of tribe heart without angina pectoris (ICD-10 - I25.10) 07/22/2024 Dyslipidemia (ICD-10 - E78.5) 08/19/2024 Essential hypertension (ICD-10 - I10) 08/20/2024 Dyslipidemia (ICD-10 - E78.5) 08/20/2024 Essential hypertension (ICD-10 - I10) 08/19/2024 Bruit (arterial) (ICD-10 - R09.89) 07/22/2024 Essential hypertension (ICD-10 - I10) 07/22/2024 Bruit (arterial) (ICD-10 - R09.89) 08/20/2024 Coronary angioplasty status (ICD-10 - Z98.61) 08/19/2024 Murmur, cardiac (ICD-10 - R01.1) 08/19/2024 Occlusion and stenosis of bilateral carotid arteries (ICD-10 - I65.23) Has modest carotid disease,signific ant intima-media thgickenning in the 75th percentile-will repeat it after max med rx and obtain the labs,will add additional blood test and max med rx and reasses of CIMT decrease 07/22/2024 Murmur, cardiac (ICD-10 - R01.1) 08/19/2024 Ataxic gait (ICD-10 - R26.0) No signs of worsenning,verte bro-basilar circulation ok Plan Of Treatment Pending Test Test Name Order Date Testosterone,Free and Total 08/20/2024 PSA, total 08/20/2024 Lipoprotien (a), Beaver 3, Co Q10, A1c, Homocystine, HS CRP, TMAO, ALT, AST, FL, Uric Acid, GGT, ADMA, Vitamin D3, Insulin Level 08/20/2024 Insurance Providers Payer Name Payer Address Payer Phone Subscriber Number Group Number Insured Name Patient Relationship to Insured Coverage Start Date Coverage End Date [place] [address] [place] [phone] [id number] Huy Khan Self - patient is the insured Medical (General) History Medical History History ICD Code wear glasses,diabetes,HBP,heart disease had inf mi/stemi with stent 07/2016 Surgical History Surgery Date(Month/Year) coronary stent
--- OUTSIDE RECORDS SUMMARY | 2024-08-25 07:26 | XMS_ITS ---
Author Organization [facility]ae Address [address] [facility] [address] [place] [address] Care Team Providers Care Enzyme Chemist Name Role Phone Chapincito Qureshi Primary Care Provider Chapincito Qureshi MD Unavailable Unavailable Encounters Encounter Location Date Provider Diagnosis [facility] [address] [facility] [address] [place] [address] 07/25/2024 Chapincito Qureshi Plan Of Treatment Next Appt Details Provider Name:Chapincito Qureshi, 10/14/2024 09:15:00 AM, [address] [facility] [address], [place], [address], Progress Notes * Huy KHANDOB:1940 ( 83 yo M)Acc No.[id number]:07/25/2024 Patient: Huy DUMONT :1940 A ge:83 Y S ex:Male Address:[address] [place] [address], [address] * true * Date: Generated for Printi ng/Faxing/eTransmitting on: 0 08/25/2024 07:26 AM CDT
--- OUTSIDE RECORDS SUMMARY | 2024-08-25 07:26 | XMS_ITS | CONTINUITY OF CARE DOCUMENT ---
Author Name toño lundberg Address Unknown Organization [facility] Address [address] [place] [address] Phone [phone] Care Team Providers Care Earth Auger Operator Name Role Phone JOE SERRANO, LULU Unavailable INSURANCE PROVIDERS Payer name Policy type / Coverage type [place] red democrat ID [id number] PPO Other [id number]
--- OUTSIDE RECORDS SUMMARY | 2024-08-25 07:26 | XMS_ITS | Patient Health Record ---
Author Organization [facility] tae Address [address] [facility] [place] [address] Care Team Providers Care Visitor Service Assistant Name Role Phone Chapincito Qureshi Primary Care Provider Chapincito Qureshi MD Unavailable Unavailable Allergies Allergen (clinical drug ingredient) Drug/Non Drug Allergy documented on EMR Reaction Allergy Type Onset Date Status Iodine Unknown Drug Allergy 03/26/2015 Inacti ve Results Component Value Reference Range Notes CBC w auto diff (Not yet rev iewed by provider) Interpretation: Performing Lab:[facility] , [address] [facility] [facility] [facility] [address] Notes/Report: WBC 4.4 3.8-9.9 K/cumm Hgb 13.8 [...] (Not yet reviewed by provider) Interpretation: Performing Lab:[facility] , [address] [facility]. [place] [address] Notes/Report: Sodium 143 135-145 mmol/L Plasma Potassium 4.9 3.3-4.9 mmol/L Chloride 108 97-110 mmol/L Total CO2 24 22-32 mmol/L Anion Gap 11 2-15 mmol/L BUN 29 6-25 mg/dL Creatinine 1.46 0.80-1.30 mg/dL Glucose 126 70-199 mg/dL Interpretive Data Fasting glucose >/= [...] data was last revised 2022. Total Calcium 9.2 8.5-10.3 mg/dL Total Bilirubin 0.5 0.1-1.2 mg/dL Plasma Total Protein 7.0 6.5-8.5 g/dL Albumin 4.2 3.5-5.0 g/dL Alkaline Phosphatase 48 40-130 Units/L ALT 30 7-55 Units/L AST 28 10-50 Units/L Hemoglobin A1C (Not yet revi ewed by provider) Interpretation: Performing Lab:[facility] , [address] [facility]. [facility] [address] Notes/Report: Hemoglobin A1C 6.7 4.0-5.6 % Est Average Glucose 146 The ADA recommends reporting an estimated Average Glucose (eAG) with all Hemoglobin A1c results using the equation derived from a study of 507 normal and diabetic adults. Minority populations were underrepresented and children were not included. (Diabetes Care 31:9371-6172, 2008). The eAG is not equivalent to a fasting glucose. Lipid Panel (Not yet reviewe d by provider) Interpretation: Performing Lab:[facility] , [address] [facility] [facility] [address] Notes/Report: Cholesterol 121 30-199 mg/dL Interpretive Data [...] yet reviewe d by provider) Interpretation: Performing Lab:[facility] , [facility] [facility]. [place] [address] Notes/Report: PSA-Total 3.69 <=6.20 ng/mL Interpretive Data [...] (Not yet reviewed by provider) Interpretation: Performing Lab:[facility] , [address] [facility]. [place] [address] Notes/Report: Free T3 2.9 2.0-4.4 pg/mL TSH Reflex FT4 (Not yet revi ewed by provider) Interpretation: Performing Lab:[facility] , [address] [facility] [facility] [place] [address] Notes/Report: TSH (Fowler) 1.50 0.30-4.20 mcIUnit/mL UA, reflex Micro to Culture (Not yet reviewed by provider) Interpretation: Performing Lab:[facility] , [address] [place] [address]. [place] [address] Notes/Report: Color, Ur Yellow Yellow Clarity, Ur [...] tendency for uric acid stone formation. Source: [facility] Peares[employer]ope Current Interpretive Data was last revised on [...] diff Reviewed date:07/27/2024 05:51:27 PM Interpretation: Performing Lab:[facility] , [address] [place] [address]. [facility] [address] Notes/Report: WBC 5.1 3.8-9.9 K/cumm Hgb 13.9 [...] (CMP) Reviewed date:07/27/2024 05:52:56 PM Interpretation: Performing Lab:[facility] , [address] [place] [address]. [facility] [address] Notes/Report: Sodium 143 135-145 mmol/L Plasma Potassium [...] Automated Reviewed date:07/27/2024 05:51:33 PM Interpretation: Performing Lab:[facility] , [address] [place] [address]. [facility] [address] Notes/Report: Neut Abs 2.5 1.5-6.5 K/cumm ImmGran Abs 0.0 0.0-0.1 K/cumm Lymphocyte Abs 1.6 0.8-3.3 K/cumm Harney Abs 0.6 0.2-0.8 K/cumm Eos Abs 0.5 [...] Interpretive Data was last revised on 2017. Harney Pct 10.7 Interpretive Data Percent cell count [...] A1C Reviewed date:07/27/2024 05:52:28 PM Interpretation: Performing Lab:[facility] , [address] [facility]. [place] [address] Notes/Report: Hemoglobin A1C 6.7 4.0-5.6 % Est Average Glucose 146 The ADA recommends reporting an estimated Average Glucose (eAG) with all Hemoglobin A1c results using the equation derived from a study of 507 normal and diabetic adults. Minority populations were underrepresented and children were not included. (Diabetes Care 31:6062-0704, 2008). The eAG is not equivalent to a fasting glucose. Lipid Panel Reviewed date:07/27/2024 05:53:02 PM Interpretation: Performing Lab:[facility] , [address] [facility]. [place] [address] Notes/Report: Cholesterol 104 30-199 mg/dL Interpretive Data [...] Free Reviewed date:07/27/2024 05:52:48 PM Interpretation: Performing Lab:[facility] , [address] [place] [address]. [facility] [address] Notes/Report: Free T3 3.1 2.0-4.4 pg/mL T4 Free Reviewed date:07/27/2024 05:52:34 PM Interpretation: Performing Lab:[facility] , [address] [place] [address]. [facility] [address] Notes/Report: Free T4 (Free Thyroxine) 1.30 0.90-1.70 ng/dL TSH Reviewed date:07/27/2024 05:52:41 PM Interpretation: Performing Lab:[facility] , [address] [place] [address]. [facility] [address] Notes/Report: TSH 1.58 0.30-4.20 mcIUnit/mL Urine Albumin / Creatinine R andom Reviewed date:07/27/2024 05:51:50 PM Interpretation: Performing Lab:[facility] , [address] [place] [address]. [facility] [address] Notes/Report: Random Urine Microalbumin 119.6 Interpretive Data No reference range established. Current interpretive data was last revised 2018. Random Urine Creatinine 133.8 Interpretive Data No reference range established. Current interpretive data was last revised 2018. Microalbumin_Creatinine Ratio 89 1-29 mg/g Urinalysis reflex microscopi c exam Reviewed date:07/27/2024 05:51:16 PM Interpretation: Performing Lab:[facility] , [address] [place] [address]. [facility] [address] Notes/Report: Color, Ur Yellow Yellow Clarity, Ur [...] tendency for uric acid stone formation. Source: [employer] Current Interpretive Data was last revised on [...] Sites) Reviewed date:07/27/2024 05:51:42 PM Interpretation: Performing Lab:[facility] , [address] [facility]. [place] [address] Notes/Report: WBC, Ur 0-5 0-5 /HPF RBC, Ur 3-5 0-2 /HPF Epithl Squam, Ur 1-5 0-5 /HPF Mucous Ur Present eGFR Reviewed date:07/27/2024 05:53:09 PM Interpretation: Performing Lab:[facility] , [address] [facility]. [place] [address] Notes/Report: eGFR 44 >=60 mL/min/1.73 m2 Interpretive [...] (Not yet reviewed by provider) Interpretation: Performing Lab:[facility] , [address] [facility]. [place] [address] Notes/Report: Neut Abs 2.4 1.5-6.5 K/cumm ImmGran Abs 0.0 0.0-0.1 K/cumm Lymphocyte Abs 1.3 0.8-3.3 K/cumm Harney Abs 0.4 0.2-0.8 K/cumm Eos Abs 0.2 [...] Interpretive Data was last revised on 2017. Harney Pct 10.1 Interpretive Data Percent cell count [...] yet reviewed by nancy reddy) Interpretation: Performing Lab:[facility] , [address] [facility] [place] [address] Notes/Report: eGFR 48 >=60 mL/min/1.73 m2 Interpretive [...] (Not yet reviewed by provider) Interpretation: Performing Lab:[facility] , [address] [place] [address]. 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 confirmed Problem 498488750 MCI (mild cognit ari impairment) (G31.84) Active [...] 07/15/2024 Encounters Encounter Location Date Provider Diagnosis [facility] [address] [place] [address] 11/26/2023 Chapincito Qureshi CAD, multiple vessel I25.10 ; Primary hypertension I10 ; Mixed hyperlipidemia E78.2 and Type 2 diabetes mellitus with diabetic peripheral angiopathy and gangrene, without long-term current use of insulin E11.52 [facility] [address] [place] [address] 07/15/2024 Chapincito Qureshi Medicare annual well ness visit, subsequent Z00.00 ; CAD, multiple vessel I25.10 ; Essential hypertension I10 ; Mixed hyperlipidemia E78.2 ; Type 2 diabetes mellitus with other circulatory complications E11.59 ; nursing home (current) use of insulin Z79.4 ; MCI (mild cognitive impairment) G31.84 and Vitamin D deficiency E55.9 [facility] [address] [place] [address] 11/27/2023 [facility] [address] [place] [address] 12/10/2023 [facility] [address] [place] [address] 12/11/2023 [facility]itus [facility] [address] [place] [address] 12/17/2023 [facility] [address] [place] [address] 12/17/2023 [facility] [address] [place] [address] 12/17/2023 Chapincito Qureshi [facility] Primary Care- [facility] [address] [place] [address] 12/30/2023 [facility] [address] [place] [address] 02/05/2024 [facility] [address] [facility] [address] [place] [address] 02/05/2024 [facility] [address] [facility] [address] [place] [address] 07/25/2024 [facility] Assessments Encounter Date Diagnosis (ICD Code) Assessment [...] foot care. Has regular follow up with web press operator helper offset in [facility] check labs today. 07/15/2024 Mixed hyperlipidemia (ICD-10 - E78.2) check labs on statin 07/15/2024 Type 2 diabetes mellitus with other circulatory complications (ICD-10 - E11.59) reviewed eye and foot care. 07/15/2024 nursing home (current) use of insulin (ICD-10 - Z79.4) [...] Qureshi, 10/14/2024 09:15:00 AM, [address] [facility] [address], [place], [address], Insurance Providers Payer Name Payer Address Payer Phone Subscriber Number Group Number Insured Name Patient Relationship to Insured Coverage Start Date Coverage End Date Medicare [address] [address] [place] [address] [id number] Huy Khan Self - patient is the insured [facility] [address] [place] [address] [id number] Huy Khan Self - patient is the insured Medical (General) History Surgical History Surgery Date(Month/Year) Sinus Surgery; 2015-03-26 Hospitalization History Reason Date(Month/Year)
--- OUTSIDE RECORDS SUMMARY | 2024-08-25 07:27 | XMS_ITS ---
Author Organization [facility] tae Address [address] [facility] [address] [place] [address] Care Team Providers Care Garment Fitter Name Role Phone Chapincito Qureshi Primary Care Provider [phone] Chapincito Qureshi MD Unavailable Unavailable Allergies Allergen (clinical drug ingredient) Drug/Non Drug Allergy documented on EMR Reaction Allergy Type Onset Date Status Iodine Unknown Drug Allergy 03/26/2015 Inacti ve Results Component Value Reference Range Notes CBC w auto diff (Not yet rev iewed by provider) Interpretation: Performing Lab:[facility] , [address] [facility]. [facility] [address] Notes/Report: WBC 4.4 3.8-9.9 K/cumm Hgb 13.8 [...] yet reviewed by provider) Interpretation: Performing Lab:[facility] , [address] [facility] [address] Notes/Report: Sodium 143 135-145 mmol/L Plasma Potassium [...] revi ewed by provider) Interpretation: Performing Lab:[facility] , [address] [place] [address]. [facility] [address] Notes/Report: Hemoglobin A1C 6.7 4.0-5.6 % Est Average Glucose 146 The ADA recommends reporting an estimated Average Glucose (eAG) with all Hemoglobin A1c results using the equation derived from a study of 507 normal and diabetic adults. Minority populations were underrepresented and children were not included. (Diabetes Care 31:8692-6470, 2008). The eAG is not equivalent to a fasting glucose. Lipid Panel (Not yet reviewe d by provider) Interpretation: Performing Lab:[facility] , [address] [facility]. [facility] [address] Notes/Report: Cholesterol 121 30-199 mg/dL Interpretive Data [...] reviewe d by provider) Interpretation: Performing Lab:[facility] , [address] [facility] [address] Notes/Report: PSA-Total 3.69 <=6.20 ng/mL Interpretive Data [...] yet reviewed by provider) Interpretation: Performing Lab:[facility] , [address] [facility] [address] Notes/Report: Free T3 2.9 2.0-4.4 pg/mL TSH Reflex FT4 (Not yet revi ewed by provider) Interpretation: Performing Lab:[facility] , [address] [facility] [address] Notes/Report: TSH ([place]) 1.50 0.30-4.20 mcIUnit/mL UA, reflex Micro to Culture (Not yet reviewed by provider) Interpretation: Performing Lab:[facility] , [address] [place] [address] Notes/Report: Color, Ur Yellow Yellow Clarity, Ur [...] tendency for uric acid stone formation. 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 confirmed Problem 29861600 Essential hypertension (I10) Active confirmed Problem 385505081 MCI (mild cognitive impairment) (G31.84) Active confirmed Problem 80221603 Vitamin D deficiency (E55.9) Active confirmed Vital [...] 07/15/2024 Encounters Encounter Location Date Provider Diagnosis [facility] [address] [facility] [address] [place] [address] 07/15/2024 Chapincito Qureshi Medicare annual well ness visit, subsequent Z00.00 ; CAD, multiple vessel I25.10 ; Essential hypertension I10 ; Mixed hyperlipidemia E78.2 ; Type 2 diabetes mellitus with other circulatory complications E11.59 ; senior living (current) use of insulin Z79.4 ; MCI [...] E11.59) reviewed eye and foot care. 07/15/2024 senior living (current) use of insulin (ICD-10 - Z79.4) 07/15/2024 MCI (mild cognitive impairment) (ICD-10 - G31.84) 07/15/2024 Vitamin D deficiency (ICD-10 - E55.9) Plan Of Treatment Medication Medication Name Sig Start Date Stop Date Notes Donepezil HCl 5 MG 1 tablet in the morn ing Orally Once a day for 30 days 07/15/2024 Treatment Notes Assessment Notes Medicare annual wellness visit, [facility] diet and exercise CAD, multiple vessel stable [...] Qureshi, 10/14/2024 09:15:00 AM, [address], [place], [address], Progress Notes * Huy PEREZDOB:1940 ( 83 yo M)Acc No.[id number]:07/15/2024 Progress Note Patient: Huy DUMONT Provider: Makenna QURESHI MD :1940 A ge:83 Y S ex:Male Date:07/15/2024 Address:[address] [place] [address], [id number] Subjective: * Chief Complaints: * A [place] Annual Wellness Visit SubsiquentNormal Follow Up * [facility]: - N o providers [...] epression Screening was performed [facility] depression screening was negative. B laddar Concerns B ladder Concerns H as no urinary incontinence. V ision Screening V ision Screening: N o current vision problems identified. H earing Screening H earing Screening: N o abnormalities detected on hearing screening. O pioid/Alcohol/Illicit Drugs Use T he patient is currently prescribed opioids? N o. [facility] _ __. D epression [...] G 0439 ANNUAL WELLNESS VST; PPS SUBSQT [id number] ANNUAL DEPRESSION SCREENING 15 [id number] GLYCATED HEMOGLOBIN TEST, Modifiers: QW * Preventive [...] Months * Billing Information: * Visit Code: 44508 Preventive Care Est Pt. Age 65 and over. * Procedure Codes: G0439 ANNUAL WELLNESS VST; PPS SUBSQT VST. G0444 ANNUAL DEPRESSION SCREENING 15 MIN. 37952 GLYCATED HEMOGLOBIN TEST. Modifiers: QW * K OPERATOR Sign off status: Completed true * Provider: Makenna QURESHI MD Date: 07/15/2024 Generated for Julian reddy/Meli/Farhatitting on: 0 08/25/2024 07:27 AM CDT History and Physical Notes * HPI [...]
--- OUTSIDE RECORDS SUMMARY | 2024-08-25 07:27 | XMS_ITS ---
Author Organization [facility] Address [address] [facility] [address] [facility] [address] [place] [address] Care Team Providers Care Correctional Maintenance Technician Name Role Phone Titus SERRANO, Chapincito Primary Care Provider FRANCIS Gomes Unavailable [phone] REASON FOR VISIT Blood work results/ Carotid results Encounters Encounter Location Date Provider Diagnosis [facility] [address] [facility] [address] [place], [place] [id number] 08/19/2024 FRANCIS SHARPE Plan Of Treatment No Information Progress Notes * Huy KHANDOB:1940 ( 84 yo M)Acc No.[id number]:08/19/2024 Progress Notes Patient: Huy DUMONT Provider: Ryan Sharpe MD :1940 A ge:84 Y S ex:Male Date:08/19/2024 Address:[address] [place] [address] Pcp:Chapincito Qureshi MD Subjective: * Chief Complaints: * 1 . Blood work results/ Carotid results. * Medical History: Objective: * Vitals: Assessment: Plan: * Treatment: * * Electronic signature of ABENA SHARPE MD on 08/25/2024 at 07:26 AM CDT Sign off status: Pending * Provider: Ryan Sharpe MD Date: 08/19/2024 Generated for Printi ng/Faxing/eTransmitting on: 08/25/2024 07:26 AM CDT
--- OUTSIDE RECORDS SUMMARY | 2024-08-25 07:27 | XMS_ITS ---
Author Organization [facility] Address [address] [facility] [address] [facility] [address] [place] [address] Care Team Providers Care Faith Healer Name Role Phone Titus SERRANO, [facility] Primary Care Provider FRANCIS Gomes Unavailable [phone] Encounters Encounter Location Date Provider Diagnosis [facility] [address] [facility] [address] [place] [address] 08/20/2024 FRANCIS SHARPE Coronary artery disease involving lovelock coronary artery of lovelock heart without angina pectoris I25.10 ; Dyslipidemia E78.5 ; Essential hypertension I10 and Coronary angioplasty status Z98.61 Assessments Encounter Date Diagnosis (ICD Code) Assessment Notes Treatment Notes Treatment Clinical Notes Section Notes 08/20/2024 Coronary artery disease involving lovelock coronary artery of lovelock heart without angina pectoris (ICD-10 - I25.10) 08/20/2024 Dyslipidemia (ICD-10 - E78.5) 08/20/2024 Essential hypertension (ICD-10 - I10) 08/20/2024 Coronary angioplasty status (ICD-10 - Z98.61) Plan Of Treatment Pending Test Test Name Order Date Testosterone,Free and Total 08/20/2024 PSA, total 08/20/2024 Lipoprotien (a), [place] 3, Co Q10, A1c, Homocystine, HS CRP, TMAO, ALT, AST, FL, Uric Acid, GGT, ADMA, Vitamin D3, Insulin Level 08/20/2024 Progress Notes * Huy KHANDOB:1940 ( 84 yo M)Acc No.[id number]:08/20/2024 Patient: Huy DUMONT :1940 A ge:84 Y S ex:Male Address:[address] [place] [address], [facility] Subjective: * Chief Complaints: * * Medical History: * Surgical History: * Hospitalization/Major Diagno stic Procedure: * Medications: Objective: * Vitals: * Physical Examination: Assessment: * Assessment: 1. C oronary artery disease involving lovelock coronary artery of lovelock heart without angina pectoris - I25.10 2 [...]
--- OUTSIDE RECORDS SUMMARY | 2024-08-25 07:28 | XMS_ITS ---
Author Organization [facility] tae Address [address] [facility] [address] [address] [place] [address] Care Team Providers Care Line Mechanic Name Role Phone Chapincito Paulino Primary Care Provider Chapincito Paulino MD Unavailable Unavailable REASON FOR VISIT 6 month f/u Encounters Encounter Location Date Provider Diagnosis [facility] [address] [facility] [address] [place] [address] 06/17/2024 Chapincito Paulino Plan Of Treatment Next Appt Details Provider Name:Chapincito Paulino, 10/14/2024 09:15:00 AM, [address] [facility] [address], [place], [address], Progress Notes * Huy PEREZDOB:1940 ( 84 yo M)Acc No.[id number]:06/17/2024 Progress Notes Patient: Griselda DUMONTz Provider: Makenna PAULINO MD :1940 A ge:83 Y S ex:Male Date:06/17/2024 Address:[address] [place], [place] [id number] Subjective: * Chief Complaints: * 1 . 6 month f/u. * Medical History: Objective: * Vitals: Assessment: Plan: * Treatment: * Billing Information: * Visit Code: * Procedure Codes: * Electronic signature of Mainor Paulino MD on 08/25/2024 at 07:27 AM CDT Sign off status: Pending * Provider: Makenna PAULINO MD Date: 0 06/17/2024 Generated for Julian reddy/Meli/Steph on: 0 08/25/2024 07:27 AM PAUL
--- OUTSIDE RECORDS SUMMARY | 2024-08-25 07:28 | XMS_ITS ---
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0 Assessments Encounter Date Diagnosis (ICD Code) Assessment Notes Treatment Notes Treatment Clinical Notes Section Notes 08/19/2024 Coronary artery disease involving [place] coronary artery of [place] heart without angina pectoris (ICD-10 - I25.10) [...] Assessment Notes Coronary artery disease invo lving [place] coronary artery of [place] heart without angina pectoris max med -glp1a [...] * Oscar KHAN:1940 ( 84 yo M)Acc No.[id number]:08/19/2024 Patient: Huy DUMONT Provider: Ryan Sharpe MD :1940 A ge:84 Y S ex:Male Date:08/19/2024 Address:[address] [place], [place] [id number] Pcp:Chapincito Qureshi MD Subjective: * Chief Complaints: [...] Assessment: 1. C oronary artery disease involving [place] coronary artery of [place] heart without angina pectoris - I25.10 (Primary) [...] ok * Procedure Codes: 9 3880 EXTRACRANIAL [id number] CAROTID INTIMA ATHEROMA EVAL * Follow Up: 6 Months * * Sign off status: Completed true * Provider: Ryan Sharpe MD Date: 08/19/2024 Generated for Julian reddy/Meli/eTransmitting on: 08/25/2024 07:27 AM CDT History and Physical Notes * Examination Category Sub-Category Detail Notes Category Not es General Examination GENERAL APPEARANCE: in no ac [place] distress, well developed, well nourished HEAD: normocephalic, [...]
[2024-08-25 08:25] LABS: Alanine Aminotransferase 31 U/L (6-50); Aspartate Amino Transferase 29 U/L (17-59); Cholesterol 115 mg/dL (0-200); HDL Direct 45 mg/dL; Triglycerides 128 mg/dL (<150); Uric Acid 5.1 mg/dL (3.5-8.5)
[2024-08-25 08:36] LABS: LDL Cholesterol Direct 37 mg/dL
[2024-08-26 11:58] LABS: GGT 24 U/L (3-70)
[2024-08-26 14:19] LABS: Insulin Level Total 10.6 uIU/mL
[2024-08-26 14:28] LABS: CRP, High Sensitivity 0.6 mg/L
[2024-08-28 12:08] LABS: Lipoprotein A <10 nmol/L
[2024-08-29 13:34] LABS: Homocysteine 13.2 umol/L (<11.4)
[2024-08-31 10:23] LABS: Testosterone Free 50.3 pg/mL (30.0-135.0); Testosterone Total 232 ng/dL (250-1100)
[2024-09-02 14:40] LABS: Reference Lab Test Name Micronut CoQ10
[2024-09-02 14:42] LABS: Reference Lab Test Result 0.47
== END 2024-08-25 07:24 | disposition home or self-care (01) ==
PROVIDERS: Referring Provider Internal Medicine Endocrinology, Diabetes & Metabolism; Visit Provider Internal Medicine Cardiovascular Disease
DX: E78.5 Hyperlipidemia, unspecified (principal); I10 Essential (primary) hypertension; I25.10 Atherosclerotic heart disease of native coronary artery without angina pectoris; Z98.61 Coronary angioplasty status
CPT/HCPCS: 36415; 80061; 82542; 82977; 83090; 83525; 83695; 84402; 84403; 84450; 84460; 84550; 86141

== ENCOUNTER 2024-11-08 06:35 | Outpatient (CLI) | payer MEDICARE, SELFPAY ==
[2024-11-08 08:01] LABS: Albumin Level 4.2 g/dL (3.5-5.1)
[2024-11-08 08:37] LABS: Prostate Specific Antigen 4.7 ng/mL (< OR = 4.0)
[2024-11-08 10:24] LABS: Creatinine Urine 81.1 mg/dL
[2024-11-08 10:32] LABS: MALB Creatinine Ratio 61.8 mg/g (0-30); Microalbumin Urine Random 50.1 mg/L (0-16.7)
== END 2024-11-08 06:36 | disposition home or self-care (01) ==
PROVIDERS: Visit Provider Internal Medicine Endocrinology, Diabetes & Metabolism
DX: R79.89 Other specified abnormal findings of blood chemistry (principal); E11.65 Type 2 diabetes mellitus with hyperglycemia; Z12.5 Encounter for screening for malignant neoplasm of prostate
CPT/HCPCS: 36415; 82040; 82043; 82607; 84153; 84270; 84402; 84403; G0103

== ENCOUNTER 2025-01-18 14:16 | Outpatient (CLI) | payer MEDICARE, SELFPAY ==
--- OUTSIDE RECORDS SUMMARY | 2024-06-17 06:30 | XMS_ITS ---
Author Organization [facility] tae Address [address] [place] [address] Care Team Providers Care Guidance Director Name Role Phone Chapincito Qureshi Primary Care Provider Titus SERRANO, Chapincito Unavailable Unavailable REASON FOR VISIT 6 month f/u Encounters Encounter Location Date Provider Diagnosis [facility] [address] [facility] [address] [place] [address] 06/17/2024 Chapincito Qureshi Plan Of Treatment Next Appt Details Provider Name:Chapincito Qureshi, 04/21/2025 08:45:00 AM, [address] [facility] [address], [place], [address], Progress Notes * Huy PEREZDOB:1940 ( 84 yo M)Acc No.[id number]:06/17/2024 Progress Notes Patient: Griselda DUMONTz Provider: Makenna QURESHI MD :1940 A ge:83 Y S ex:Male Date:06/17/2024 Address:[address] [place] [id number] Subjective: * Chief Complaints: * 1 . 6 month f/u. * Medical History: Objective: * Vitals: Assessment: Plan: * Treatment: * Billing Information: * Visit Code: * Procedure Codes: * Electronic signature of Mainor Qureshi MD on 01/18/2025 at 03:52 PM CDT Sign off status: Pending * Provider: Makenna QURESHI MD Date: 0 06/17/2024 Generated for Julian reddy/Meli/Steph on: 0 01/18/2025 03:52 PM CDT
--- OUTSIDE RECORDS SUMMARY | 2024-08-19 07:30 | XMS_ITS ---
Author Organization [facility] Address [address] [facility] [facility] [address] [place] [address] Care Team Providers Care Medical Office Technician Name Role Phone Titus SERRANO, Chapincito Primary Care Provider FRANCIS Gomes Unavailable [phone] REASON FOR VISIT Blood work results/ Carotid results Encounters Encounter Location Date Provider Diagnosis [facility] [address] [facility] [address] [place], [place] [id number] 08/19/2024 FRANCIS SHARPE Plan Of Treatment No Information Progress Notes * Huy KHANDOB:1940 ( 84 yo M)Acc No.[id number]:08/19/2024 Progress Notes Patient: Huy DUMONT Provider: Ryan Sharpe MD :1940 A ge:84 Y S ex:Male Date:08/19/2024 Address:[address] [place] [address] Pcp:Chapincito Qureshi MD Subjective: * Chief Complaints: * 1 . Blood work results/ Carotid results. * Medical History: Objective: * Vitals: Assessment: Plan: * Treatment: * * Electronic signature of ABENA SHARPE MD on 01/18/2025 at 03:52 PM CDT Sign off status: Pending * Provider: Ryan Sharpe MD Date: 08/19/2024 Generated for Printi ng/Faxing/eTransmitting on: 01/18/2025 03:52 PM CDT
--- NOTE | ~2025-01-18 | XR_ITS ---
EXAMINATION: XR hand LT min 3V DATE: 01/18/2025 14:41 INDICATION: Pain in left finger TECHNIQUE: 3 images of the left hand were obtained. COMPARISON: None. FINDINGS: [Moderate joint space narrowing in the first carpometacarpal joint. Mild joint space narrowing in the first metacarpophalangeal joint, interphalangeal joint of the thumb and second through fifth PIP and DIP joints. Soft tissue swelling about the left hand. [ No radiographic evidence for an acute fracture.] Widening of the scapholunate joint space. [ No radiopaque foreign body.] [ No sclerotic bone lesions.] 5 mm lucency in the head of the fifth metacarpal. IMPRESSION: 1. [ No acute fracture identified. 2. Moderate joint space narrowing in the first carpometacarpal joint. 3. Widening of the scapholunate joint space. Differential includes anatomic variant versus ligamentous injury of indeterminate age. If symptoms persist or worsen consider a short-term follow-up study or additional imaging for further assessment. Reviewed, dictated and finalized at location Q. IMPRESSION: 1. [ No acute fracture identified. 2. Moderate joint space narrowing in the first carpometacarpal joint. 3. Widening of the scapholunate joint space. Differential includes anatomic kathy iant versus ligamentous injury of indeterminate age. If symptoms persist or worsen consider a short-term follow-up study or addition al imaging for further assessment.
--- OUTSIDE RECORDS SUMMARY | 2025-01-18 15:52 | XMS_ITS | Clinical Summary ---
Author Organization [facility] Address [address] [place] [address] Care Team Providers Care Film Sorter Name Role Phone Chapincito Qureshi MD Primary Care Provider [phone] Source Comments [facility],non-owned Affiliates and Associated Physician Practices is amultiple site organization consisting of ambulatory clinics and hospital sitesin [place], [place], [place] and [place]. This disclosure is being madepursuant to the Care Everywhere program and may not contain all information available regarding this patient. Last updated 18.[facility] Immunizations Immunization Administration Dates Next Due Covid Pfizer primary Monovalent 12+ yr 0.3ml Social History Tobacco Use Types Packs/Day Years Used Date Smoking Tobacco: Never Assessed Sex and Gender Information Value Date Recorded Sex Assigned at Not on file Legal Sex Male 2:34 PM CDT Gender Identity Not on file Sexual Orientation [...] 2024 08/31/2021 DEPRESSION SCREENING 05/18/2024 INFLUENZA VACCINE (#1) 2025 HEPATITIS B VACCINE Aged Out No [...] on patient's age to complete this topic Insurance Care Teams Film Sorter Relationship Specialty Start Date End Date Chapincito Qureshi MD [address] [facility] [address] [place] [id number] PCP - General Internal Medicine 08/26/17
--- OUTSIDE RECORDS SUMMARY | 2025-01-18 15:52 | XMS_ITS | Patient Health Record ---
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 [facility] [address] Notes/Report: WBC 4.4 3.8-9.9 K/cumm Hgb 13.8 [...] (Not yet reviewed by provider) Interpretation: Performing Lab:[facility] , [address] [facility] [facility] [address] Notes/Report: Sodium 143 135-145 mmol/L Plasma Potassium [...] yet revi ewed by provider) Interpretation: Performing Lab:[facility] , [address] [facility] [facility] [address] Notes/Report: Hemoglobin A1C 6.7 4.0-5.6 % Est Average Glucose 146 The ADA recommends reporting an estimated Average Glucose (eAG) with all Hemoglobin A1c results using the equation derived from a study of 507 normal and diabetic adults. Minority populations were underrepresented and children were not included. (Diabetes Care 31:8402-7721, 2008). The eAG is not equivalent to a fasting glucose. Lipid Panel (Not yet reviewe d by provider) Interpretation: Performing Lab:[facility] , [address] [facility] [facility] [address] Notes/Report: Cholesterol 121 30-199 mg/dL Interpretive Data [...] NCEP Expert Panel. Circulation 2004;110:227 3. Nash Reddy et al. GIOVANNA Cardiol. 2020 September 15;5(5):540-548. [...] yet reviewe d by provider) Interpretation: Performing Lab:[facility] , [facility] [facility]. [facility] [address] Notes/Report: PSA-Total 3.69 <=6.20 ng/mL Interpretive Data [...] (Not yet reviewed by provider) Interpretation: Performing Lab:[facility] , [facility] [facility] [address] Notes/Report: Free T3 2.9 2.0-4.4 pg/mL TSH Reflex FT4 (Not yet revi ewed by provider) Interpretation: Performing Lab:[facility] , [address] [facility] [facility] [address] Notes/Report: TSH ([place]) 1.50 0.30-4.20 mcIUnit/mL UA, reflex Micro to Culture (Not yet reviewed by provider) Interpretation: Performing Lab:[facility] , [address] [facility] [place] [address] Notes/Report: Color, Ur Yellow Yellow Clarity, Ur [...] tendency for uric acid stone formation. Source: POPSUGAR Current Interpretive Data was last revised on 2017 Protein, Ur Ql Trace Negative Glucose, Ur Ql 4+ Negative Ketones, Ur Negative Negative Bilirubin, Ur Negative Negative Blood, Ur Negative Negative Urobilinogen, Ur <2.0 <2.0 mg/dL Nitrite, Ur Negative Negative Leukocyte Esterase, Ur Negative Negative UA reflex comment See Below Reflex con ditions for microscopic UA and culture not met. Differential Automated (Not yet reviewed by provider) Interpretation: Performing Lab:[facility] , [address] [facility] [place] [address] Notes/Report: Neut Abs 2.4 1.5-6.5 K/cumm ImmGran Abs 0.0 0.0-0.1 K/cumm Lymphocyte Abs 1.3 0.8-3.3 K/cumm Fisher Abs 0.4 0.2-0.8 K/cumm Eos Abs 0.2 [...] Interpretive Data was last revised on 2017. Fisher Pct 10.1 Interpretive Data Percent cell count [...] Interpretive Data was last revised on 2017. Vit D 25OH (Not yet reviewed by provider) Interpretation: Performing Lab:[facility] , [address] [place] [address]. [facility] [address] Notes/Report: 25 Hydroxy Vitamin D 28 30-80 ng/mL eGFR (Not yet reviewed by nancy reddy) Interpretation: Performing Lab:[facility] , [address] [place] [address]. [facility] [address] Notes/Report: eGFR 48 >=60 mL/min/1.73 m2 Interpretive [...] of Race in Diagnosing Kidney Disease, JASN 202). The CKD-EPI equation should not be used for patients with unstable renal function and has not been validated in children and those over 70. Current interpretive data was last reviewed 2021. Reason For Referral No Information Medications Medication SIG (Take, Route, Frequency, Duration) Notes Start Date End Date Status Carvedilol 6.25 MG TAKE 1 TABLET TWICE A DAY WITH FOOD Oral; Duration: 90 days 04/26/2019 Active Jardiance 25 MG 1 tablet Orally Once a day; Duration: 30 day(s) Active Brilinta 60 MG 1 tablet Orally Twic e a day; Duration: 90 days Active Albuterol Sulfate HFA 108 (90 Base) MCG/ACT 1 puff as needed Inhalation every 6 hours; Duration: 30 days 12/17/2023 Not-Taking Fosinopril Sodium 40 MG 1 tablet Orally Once a day; Duration: 30 day(s) Active Tradjenta 5 MG TAKE 1 TABLET BY NICK TH EVERY MORNING Oral; Duration: 90 Days Active Rosuvastatin Calcium 40 MG 1 tablet Oral Once a day; Duration: 90 Days Active Albuterol Sulfate HFA 108 (90 Base) MCG/ACT 2 puff Inhalation 3 times a day; Duration: 30 days 10/20/2024 Active Immunizations Vaccine Route Administration Date Status Comme nts COVID Bivalent (PFR 12+) Unknown 04/25/2022 Administere d COVID Rc-Suc (PFR 12+) Unknown 08/31/2021 Administere d COVID- Vaccine mRNA Unknown 03/05/2023 Administered COVID- [...] Problem Status W/U Status Risk Notes Problem Peripheral circulatory disorder associated with diabetes mellitus (217475130) Type 2 diabetes mellitus with other circulatory complications (E11.59) Active confirmed Problem Mixed hyperlipidemia (885921572) Mixed hyperlipidemia (E78.2) Active confirmed Problem Long-term current use of insulin (225242225) MCC (current) use of insulin (Z79.4) Active confirmed Problem Essential hypertension (57893679) Essential hypertension (I10) Active confirmed Problem Vitamin D deficiency (26615148) Vitamin D deficiency (E55.9) Active confirmed Problem Multi vessel coronary artery disease (852487594) CAD, 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 confirmed Problem Mild cognitive disorder (972779323) MCI (mild cognitive impairment) (G31.84) Active confirmed Vital Signs Heart Rate 66 /min 10/20/2024 Temperature 98.0 degrees Fahrenheit 10/20/2024 Blood pressure diastolic 78 mm Hg 10/20/2024 Oximetry 97 % 10/20/2024 Height-cm 170.18 cm 10/20/2024 Weight-kg 65.95 kg 10/20/2024 Height 67 in 10/20/2024 Blood pressure systolic 122 mm Hg 10/20/2024 Weight 145.4 lbs 10/20/2024 BMI 22.77 kg/m2 10/20/2024 Encounters Encounter Location Date Provider Diagnosis [facility] [address] [place] [address] 07/15/2024 Chapincito Qureshi Medicare annual wellness visit, subsequent Z00.00 ; CAD, multiple vessel I25.10 ; Essential hypertension I10 ; Mixed hyperlipidemia E78.2 ; Type 2 diabetes mellitus with other circulatory complications E11.59 ; MCC (current) use of insulin Z79.4 ; MCI (mild cognitive impairment) G31.84 and Vitamin D deficiency E55.9 [facility] [address] [place] [address] 10/20/2024 Theresa Lawler Wheezing R06.2 ; Essential hypertension I10 ; MCI (mild cognitive impairment) G31.84 ; CAD, multiple vessel I25.10 ; Mixed hyperlipidemia E78.2 and Type 2 diabetes mellitus with other circulatory complications E11.59 [facility] [address] [place] [address] 02/05/2024 [facility] [address] [place] [address] 02/05/2024 Chapincito Qureshi [facility] [address] [place] [address] 07/25/2024 Chapincito Qureshi Assessments Encounter Date Diagnosis (ICD Code) Assessment Notes Treatment Notes Treatment Clinical Notes Section Notes 07/15/2024 Medicare annual wellness visit, subsequent (ICD-10 - Z00.00) diet and exercise 07/15/2024 CAD, multiple vessel (ICD-10 - I25.10) stable 10/20/2024 Wheezing (ICD-10 - R06.2) 10/20/2024 Essential hypertension (ICD-10 - I10) 10/20/2024 MCI (mild cognitive impairment) (ICD-10 - G31.84) 07/15/2024 Essential hypertension (ICD-10 - I10) controlled 07/15/2024 Mixed hyperlipidemia (ICD-10 - E78.2) check labs on statin 10/20/2024 CAD, multiple vessel (ICD-10 - I25.10) 10/20/2024 Mixed hyperlipidemia (ICD-10 - E78.2) 07/15/2024 Type 2 diabetes mellitus with other circulatory complications (ICD-10 - E11.59) reviewed eye and foot care. 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 (ICD-10 - Z79.4) 10/20/2024 Type 2 diabetes mellitus with other circulatory complications (ICD-10 - E11.59) 07/15/2024 MCI (mild cognitive impairment) (ICD-10 - G31.84) 07/15/2024 Vitamin D deficiency (ICD-10 - E55.9) Plan Of Treatment Pending Test Test Name Order Date Hemoglobin A1c 05/21/2023 Hemoglobin A1c 11/26/2023 Triiodothyronine (T3) 11/26/2023 Triiodothyronine (T3) 05/21/2023 CBC With Differential/Platelet CBC With Differential/Platelet T4 and TSH 11/26/2023 T4 and TSH 05/21/2023 Vitamin D, 25-Hydroxy 07/15/2024 Microalb/Creat Ratio, Randm Ur Microalb/Creat Ratio, Randm Ur 07/11/202 4 Lipid Panel And Chol/HDL Ratio Lipid Panel And Chol/HDL Ratio 4 Chem-Comprehensive [...] 07/15/2024 Next Appt Details Provider Name:Chapincito Qureshi, 04/21/2025 08:45:00 AM, [address] [address] [facility] [address], [place], [address], Insurance Providers Payer Name Payer Address Payer Phone Subscriber Number Group Number Insured Name Patient Relationship to Insured Coverage Start Date Coverage End Date Medicare [address] [address] [place] [address] [id number] Huy Khan Self - patient is the insured [facility] [address] [place] [address] [id number] Huy Khan Self - patient is the insured Medical (General) History Surgical History Surgery Date(Month/Year) Sinus Surgery; 2015-03-26 Hospitalization History Reason Date(Month/Year)
--- OUTSIDE RECORDS SUMMARY | 2025-01-18 15:52 | XMS_ITS | Patient Health Record ---
Author Organization [facility] Address [address] [place] [address] Care Team Providers Care Customer Project Manager Name Role Phone Titus SERRANO, [facility] Primary Care Provider FRANCIS Gomes Unavailable [phone] Allergies No Known Allergies Reason For Referral No Information Medications Medication SIG (Take, Route, Frequency, Duration) Notes Start Date End Date Status Fosinopril Sodium 40 MG 1 tablet Orally Once a day Active B Complex - as directed Orally Not-Taking Atorvastatin Calcium 40 MG 1 tablet Orally Once a day; Duration: 30 day(s) Active metFORMIN HCl 500 MG 1 tablet with a kalani l Orally twice daily Active Colchicine 0.6 MG TAKE 1 TABLET BY NICK TH EVERY DAY FOR 30 DAYS; Duration: 90 Active Carvedilol 6.25 mg TAKE 1 TABLET TWICE A DAY WITH FOOD Not-Taking Brilinta 60 MG 1 tablet Orally twic e daily; Duration: 30 days Active Co Q 10 100 MG 4 tabs Orally daily; Duration: 30 days 07/24/2024 Active Social History Tobacco [...] stenosis of multiple and bilateral cerebral arteries (168107170) Occlusion and stenosis of bilateral carotid arteries (I65.23) Active confirmed Problem Ataxic gait (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 Problem History of percutaneous transluminal coronary angioplasty (situation) (851131005) Coronary angioplasty status (Z98.61) Active confirmed Problem Essential hypertension (45833159) Essential hypertension (I10) Active confirmed Problem Dyslipidemia (380810747) Dyslipidemia (E78.5) Active confirmed Problem Atherosclerotic heart disease of [place] coronary artery without angina pectoris (120484563808888) Coronary artery disease involving [place] coronary artery of [place] heart without angina pectoris (I25.10) Active confirmed Problem Type II diabetes mellitus without complication (076748385) Controlled type 2 diabetes mellitus without complication, without long-term current use of insulin (E11.9) Active confirmed Problem Aortic valve disorder (8926884) Aortic stenosis, mild (I35.0) Active confirmed Vital Signs Heart Rate 88 /min 08/19/2024 Respiratory Rate 16 /min 07/22/2024 Blood pressure diastolic 76 mm Hg 08/19/2024 Height 66 in 07/22/2024 Blood pressure systolic 121 mm Hg 08/19/2024 Weight 145 lbs 07/22/2024 BMI 23.4 kg/m2 07/22/2024 Encounters Encounter Location Date Provider Diagnosis [address] [id number] 08/19/2024 FRANCIS SHARPE [facility] [address] [place] [address] 07/22/2024 FRANCIS SHARPE Coronary artery disease involving [place] coronary artery of [place] heart without angina pectoris I25.10 ; Dyslipidemia E78.5 ; Essential hypertension I10 ; Bruit (arterial) R09.89 and Murmur, cardiac R01.[address] [id number] 08/19/2024 FRANCIS SHARPE Coronary artery disease involving [place] coronary artery of [place] heart without angina pectoris I25.10 ; Dyslipidemia E78.5 ; Essential hypertension I10 ; Bruit (arterial) R09.89 ; Murmur, cardiac R01.1 ; Occlusion and stenosis of bilateral carotid arteries I65.23 and Ataxic gait R26.0 [facility] [address] [place] [address] 07/24/2024 FRANCIS SHARPE [facility] [address] [place] [address] 07/25/2024 FRANCIS SHARPE [facility] [address] [place] [address] 08/20/2024 FRANCIS SHARPE Coronary artery disease involving [place] coronary artery of [place] heart without angina pectoris I25.10 ; Dyslipidemia E78.5 ; Essential hypertension I10 and Coronary angioplasty status Z98.61 Assessments Encounter Date Diagnosis (ICD Code) Assessment Notes Treatment Notes Treatment Clinical Notes Section Notes 07/22/2024 Coronary artery disease involving [place] coronary artery of [place] heart without angina pectoris (ICD-10 - I25.10) Appears stable,will max GDMT,check extra labs for LP[a],omega levels,Carotid IMT/has has carotid mild disease,add colchicin for cad reversalj 08/19/2024 Dyslipidemia (ICD-10 - E78.5) 08/19/2024 Coronary artery disease involving [place] coronary artery of [place] heart without angina pectoris (ICD-10 - I25.10) max med -glp1a /check LP[a],other parameters 08/20/2024 Coronary artery disease involving [place] coronary artery of [place] heart without angina pectoris (ICD-10 - I25.10) [...] Testosterone,Free and Total 08/20/2024 PSA, total 08/20/2024 Galectin-3 08/20/2024 Insurance Providers Payer Name Payer Address Payer Phone Subscriber Number Group Number Insured Name Patient Relationship to Insured Coverage Start Date Coverage End Date Steve [address] [place] [phone] [id number] Huy Khan Self - patient is the insured Medical (General) History Medical History History ICD Code wear glasses,diabetes,HBP,heart disease had inf mi/stemi with stent 07/2016 Surgical History Surgery Date(Month/Year) coronary stent
== END 2025-01-18 14:17 | disposition home or self-care (01) ==
PROVIDERS: Visit Provider Orthopaedic Surgery
DX: M18.12 Unilateral primary osteoarthritis of first carpometacarpal joint, left hand (principal)
CPT/HCPCS: 73130